=== PATIENT | female | born 1935 | race Caucasian/White ===

== ENCOUNTER 2017-05-24 16:20 | Inpatient (IN) | payer OTHER, MEDICARE ==
[2017-05-24] MEDS ORDERED: NS 1/2 1000 ML IV 1,000 ML IV ONE (17:58)
[2017-05-24] MEDS: TAMIFLU PO SCH ×2 (18:13→22:25)
[2017-05-24] MEDS: LEVAQUIN PREMIX IV 750 MG 750 MG/150 ML BAG IV SCH (18:13)
[2017-05-24] MEDS: SOLU-Medrol 40 MG VIAL IVP SCH ×2 (18:13→22:25)
[2017-05-24] MEDS: NS 1/2 1000 ML IV 1,000 ML IV SCH (18:13)
[2017-05-24] MEDS: ROBITUSSIN DM PO SCH ×2 (18:13→22:25)
[2017-05-24 18:15] LABS: BASOPHILS % (AUTO) 0.3 % (0.2-1.0); HEMATOCRIT 41.1 % (36.0-47.0); HEMOGLOBIN 14.3 g/dL (12.0-16.0); LYMPHOCYTES # (AUTO) 1.2 X10^3/uL (1.3-2.9); LYMPHOCYTES % (AUTO) 12.5 % (21.0-51.0); MEAN CORPUSCULAR HEMOGLOBIN 31.4 pg (27.0-34.0); MEAN CORPUSCULAR HGB CONC 34.9 g/dL (33.0-35.0); MEAN CORPUSCULAR VOLUME 90.1 fL (80.0-100.0); MEAN PLATELET VOLUME 7.3 fL (7.4-11.0); MONOCYTES # (AUTO) 0.7 x10^3/uL (0.3-0.8); MONOCYTES % (AUTO) 7.7 % (0.0-13.0); NEUTROPHILS # (AUTO) 7.4 x10^3/uL (2.2-4.8); NEUTROPHILS % (AUTO) 79.5 % (42.0-75.0); PLATELET COUNT 133 X10^3/uL (150.0-450.0); RED BLOOD COUNT 4.56 X10^6/uL (3.5-5.4); RED CELL DISTRIBUTION WIDTH 13.4 % (11.6-16.5); WHITE BLOOD COUNT 9.3 X10^3/uL (3.6-10.0)
--- NOTE | 2017-05-24 18:23 | RAD ---
History: Flu Study: Portable AP chest Comparison: None Findings: The heart size is normal. There are mildly increased diffuse interstitial lung markings branden t appear chronic. There is no focal lung consolidation or atelectasis and there is no effusion. Impression: No definite acute cardiopulmonary disease Reported By:
[2017-05-24 18:32] LABS: B-TYPE NATRIURETIC PEPTIDE 239 pg/mL (0-79)
[2017-05-24] MEDS: FORTAZ or TAZICEF INJ 1 GM in NS 100 ML IV + SPIKE MINIBAG* 100 ML IV SCH ×2 (19:18→22:53)
[2017-05-24 19:35] LABS: ABG BASE EXCESS 5.8 mmol/L (-2.0-2.0); ABG HCO3 29.8 mmol/L (22-26)
[2017-05-24 19:36] LABS: ABG ALLEN TEST POS
[2017-05-24 20:17] LABS: ALANINE AMINOTRANSFERASE 42 Units/L (12-78); ALBUMIN 3.8 g/dL (3.4-5.0); ALKALINE PHOSPHATASE 54 Units/L (46-116); ASPARTATE AMINO TRANSFERASE 43 Units/L (15-37); BLOOD UREA NITROGEN 11 mg/dL (7-18); CALCIUM 9.3 mg/dL (8.5-10.1); CARBON DIOXIDE 25.7 mmol/L (21-32); CHLORIDE 94 mmol/L (98-107); CREATININE 0.59 mg/dL (0.55-1.02); SODIUM 130 mmol/L (136-145); TOTAL PROTEIN 7.6 g/dL (6.4-8.2); eGFR BLACK RACES > 60 (>60); eGFR NON BLACK RACES > 60 (>60)
[2017-05-24] MEDS: MUCOMYST 20% 200 MG/ML NEB SCH (20:59)
[2017-05-24] MEDS: DUONEB 0.5 MG/3 MG NEB SCH (20:59)
[2017-05-25] MEDS: TUSSIONEX PENNKINETIC SUSP PO PRN (05:03)
[2017-05-25] MEDS: FORTAZ or TAZICEF INJ 1 GM in NS 100 ML IV + SPIKE MINIBAG* 100 ML IV SCH ×3 (05:29→21:00)
[2017-05-25] MEDS: SOLU-Medrol 40 MG VIAL IVP SCH ×3 (05:30→21:00)
[2017-05-25 05:46] LABS: BASOPHILS % (AUTO) 0.2 % (0.2-1.0); HEMATOCRIT 38.9 % (36.0-47.0); HEMOGLOBIN 13.5 g/dL (12.0-16.0); LYMPHOCYTES # (AUTO) 0.5 X10^3/uL (1.3-2.9); LYMPHOCYTES % (AUTO) 8.6 % (21.0-51.0); MEAN CORPUSCULAR HEMOGLOBIN 31.9 pg (27.0-34.0); MEAN CORPUSCULAR HGB CONC 34.8 g/dL (33.0-35.0); MEAN CORPUSCULAR VOLUME 91.4 fL (80.0-100.0); MEAN PLATELET VOLUME 7.7 fL (7.4-11.0); MONOCYTES # (AUTO) 0.2 x10^3/uL (0.3-0.8); MONOCYTES % (AUTO) 3.4 % (0.0-13.0); NEUTROPHILS # (AUTO) 5.2 x10^3/uL (2.2-4.8); NEUTROPHILS % (AUTO) 87.8 % (42.0-75.0); PLATELET COUNT 128 X10^3/uL (150.0-450.0); RED BLOOD COUNT 4.25 X10^6/uL (3.5-5.4); RED CELL DISTRIBUTION WIDTH 13.5 % (11.6-16.5); WHITE BLOOD COUNT 5.9 X10^3/uL (3.6-10.0)
[2017-05-25 06:11] LABS: ALANINE AMINOTRANSFERASE 34 Units/L (12-78); ALBUMIN 3.2 g/dL (3.4-5.0); ALKALINE PHOSPHATASE 49 Units/L (46-116); ASPARTATE AMINO TRANSFERASE 31 Units/L (15-37); BLOOD UREA NITROGEN 7 mg/dL (7-18); CALCIUM 8.4 mg/dL (8.5-10.1); CARBON DIOXIDE 26.6 mmol/L (21-32); CHLORIDE 98 mmol/L (98-107); COR NA(FOR HYPERGLY) 136 mmol/L (136-145); CREATININE 0.51 mg/dL (0.55-1.02); SODIUM 134 mmol/L (136-145); TOTAL PROTEIN 6.7 g/dL (6.4-8.2); eGFR BLACK RACES > 60 (>60); eGFR NON BLACK RACES > 60 (>60)
--- NOTE | 2017-05-25 07:36 | RAD ---
HISTORY: Pneumonia, flu Study: Chest AP portable Comparison: 05/24/2017 Findings: The heart is enlarged. No congestive heart failure is noted. The lungs are hyperinflated but free of acute alveolar infiltrates. Mild interstitial lung changes are present. No pleural effusions are iden tified. The bony thorax is unremarkable. IMPRESSION: Cardiomegaly without congestive heart failure Hyperinflation Mild interstitial lung changes Reported By:
[2017-05-25] MEDS: MUCOMYST 20% 200 MG/ML NEB SCH ×2 (08:43→20:39)
[2017-05-25] MEDS: DUONEB 0.5 MG/3 MG NEB SCH ×4 (08:43→20:39)
[2017-05-25] MEDS: TAMIFLU PO SCH ×2 (10:20→20:55)
[2017-05-25] MEDS: ROBITUSSIN DM PO SCH ×3 (10:20→20:55)
[2017-05-25] MEDS: LEVAQUIN PREMIX IV 750 MG 750 MG/150 ML BAG IV SCH (10:20)
[2017-05-25] MEDS: BUTT CREAM (COMPOUND) TOP PRN ×2 (12:00→21:55)
[2017-05-25] MEDS ORDERED: NS 1/2 1000 ML IV 1,000 ML IV ONE (21:13)
[2017-05-25] MEDS: NS 1/2 1000 ML IV 1,000 ML IV SCH (23:15)
[2017-05-26 05:37] LABS: ALANINE AMINOTRANSFERASE 31 Units/L (12-78); ALBUMIN 2.9 g/dL (3.4-5.0); ALKALINE PHOSPHATASE 45 Units/L (46-116); ASPARTATE AMINO TRANSFERASE 21 Units/L (15-37); BLOOD UREA NITROGEN 13 mg/dL (7-18); CALCIUM 8.9 mg/dL (8.5-10.1); CARBON DIOXIDE 28.3 mmol/L (21-32); CHLORIDE 99 mmol/L (98-107); COR CA(FOR HYPOALB) 9.8 mg/dL (8.5-10.1); COR NA(FOR HYPERGLY) 136 mmol/L (136-145); CREATININE 0.65 mg/dL (0.55-1.02); SODIUM 134 mmol/L (136-145); TOTAL PROTEIN 6.3 g/dL (6.4-8.2); eGFR BLACK RACES > 60 (>60); eGFR NON BLACK RACES > 60 (>60)
[2017-05-26] MEDS: SOLU-Medrol 40 MG VIAL IVP SCH ×3 (05:40→21:23)
[2017-05-26] MEDS: FORTAZ or TAZICEF INJ 1 GM in NS 100 ML IV + SPIKE MINIBAG* 100 ML IV SCH ×3 (05:40→21:24)
[2017-05-26 05:48] LABS: BASOPHILS % (AUTO) 0.1 % (0.2-1.0); HEMATOCRIT 37.7 % (36.0-47.0); LYMPHOCYTES # (AUTO) 0.8 X10^3/uL (1.3-2.9); LYMPHOCYTES % (AUTO) 8.6 % (21.0-51.0); MEAN CORPUSCULAR HEMOGLOBIN 31.6 pg (27.0-34.0); MEAN CORPUSCULAR HGB CONC 34.4 g/dL (33.0-35.0); MEAN CORPUSCULAR VOLUME 91.9 fL (80.0-100.0); MEAN PLATELET VOLUME 7.3 fL (7.4-11.0); MONOCYTES # (AUTO) 0.6 x10^3/uL (0.3-0.8); MONOCYTES % (AUTO) 6.6 % (0.0-13.0); NEUTROPHILS # (AUTO) 8.3 x10^3/uL (2.2-4.8); NEUTROPHILS % (AUTO) 84.7 % (42.0-75.0); PLATELET COUNT 160 X10^3/uL (150.0-450.0); RED CELL DISTRIBUTION WIDTH 13.3 % (11.6-16.5); WHITE BLOOD COUNT 9.8 X10^3/uL (3.6-10.0)
[2017-05-26] MEDS: DUONEB 0.5 MG/3 MG NEB SCH ×4 (08:42→21:10)
[2017-05-26] MEDS: MUCOMYST 20% 200 MG/ML NEB SCH ×2 (08:42→21:10)
[2017-05-26] MEDS: TAMIFLU PO SCH ×2 (09:34→21:19)
[2017-05-26] MEDS: LEVAQUIN PREMIX IV 750 MG 750 MG/150 ML BAG IV SCH (09:34)
[2017-05-26] MEDS: ROBITUSSIN DM PO SCH ×4 (09:35→21:19)
--- NOTE | 2017-05-26 10:35 | RAD ---
Examination: AP chest History: Pneumonia Comparison 05/25/2017 Findings: Continued normal heart size with no evidence for developing pneumonia or atelectasis. The p leural spaces are well defined. No pneumothorax is seen. Impression: No definite interval change or acute findings. Reported By:
[2017-05-26 14:05] VITALS: BMI 29.0
--- NOTE | 2017-05-26 20:45 | DR.UPDATE ---
H&P Update History and Physical Update: WAS SEEN IN THE OFFICE ON 05/24/2017. A H&P WAS COMPLETED IN THE OFFICE PRIOR TO ADMISSION. PATIENT HAS BEEN SEEN AND EXAMINED WITH NO CHANGES NOTED TO H&P. Changes noted: NO Yes with the following:
--- NOTE | 2017-05-26 21:12 | PCM.PROG ---
Progress Note - Progress Note for Day of Date: 05/25/17 - Subjective Subjective: WAS A DIRECT ADMISSION YESTERDAY FOR BRONCHOPNEUMONIA AND INFLUENZA. TODAY, SHE IS ALERT AND ORIENTED, SITTING UP IN BED ON MORNING ROUNDS. PATIENTS SON IS AT BEDSIDE. TODAY, SHE IS NOTED WITH COMPLAINTS OF COUGH, CONGESTION, SHORTNESS OF BREATH, AND WEAKNESS. ON EXAMINATION, HEART IS REGULAR IN RATE AND RHYTHM. BILATERAL LUNGS ARE NOTED WITH RHONCHI AND EXPIRATORY WHEEZES. SHE IS NOTED TO BE UTILIZING OXYGEN VIA NASAL CANNULA AT 2L/ MIN. ABDOMEN IS ROUND, SOFT, AND NON-TENDER WITH NORMAL BOWEL SOUNDS NOTED IN ALL QUADRANTS. THERE IS NORMAL RANGE OF MOTION NOTED TO ALL EXTREMITIES. HER VITALS THIS MORNING ARE 97.9-74-18-94%-144/75. LABS WERE OBTAINED. ABNORMAL LAB VALUES INCLUDE THE FOLLOWING: PLT COUNT 128, SODIUM 134, CREATININE 0.51, GLUCOSE 163, CALCIUM 8.4, ALBUMIN 3.2. BLOOD CULTURES AND SPUTUM CULTURE ARE PENDING. A CHEST XRAY WAS OBTAINED TODAY AND REPORTED CARDIOMEGALY WITHOUT CONGESTIVE HEART FAILURE, HYPERINFLATION, MILD INTERSTITAL LUNG CHANGES. SHE CONTINUES ON IV ANTIBIOTICS, TAMIFLU, AND RESPIRATORY TREATMENTS. WE WILL CONTINUE WITH CURRENT PLAN OF CARE TODAY. WE PLAN TO FOLLOW UP WITH AM LABS AND CHEST XRAY AND CONTINUE TO MONITOR PATIENT. - Past Medical Family Social History Past Med/Fam/Surg Hx: No changes since H&P Allergies: Allergies benzonatate [From Tessalon Perles] Allergy (Verified 05/24/17 16:50) meperidine [From Demerol] Allergy (Verified 05/24/17 16:50) Penicillins Allergy (Verified 05/24/17 17:37) rofecoxib [From Vioxx] Allergy (Verified 05/24/17 16:50) WATER PILLS Allergy (Uncoded 05/24/17 19:00) - Review of Systems ROS: No change since H&P - Vital Signs and I&O's Vital Signs: Temperature 97.7 F Pulse Rate [Right Brachial] 72 Pulse Rate 74 Respiratory Rate 20 Blood Pressure [Right Arm] 128/62 O2 Sat by Pulse Oximetry 93 Intake and Output: Intake & Output 05/24/17 05/25/17 05/26/17 05/27/17 11:59 11:59 11:59 11:59 Intake Total 605 2122 760 Balance 605 2121 760 - Physical Exam Oriented: Normal Eyes: Normal. negative: Blurred Vision, Diplopia, Discharge, Pain, Redness, Photophobia, Other Ear: Normal. negative: Right, Left, Swelling, Ecchymosis, Hemotypanum, Abrasion , Laceration Nose: Other (NASAL AND CHEST CONGESTION ) Throat: Normal Respiratory: Right, Left, Generalized, Wheezes, Rhonchi Cardiovascular: Normal. negative: S3, S4, Murmur : Normal. negative: Dysuria, Hematuria, Frequency, Discharge, Testicular Pain , Bleeding, , Other Auscultation: Bowel Sounds: Normal. negative: Bruit, Absent, Increased, Decreased, High Pitched, Other Palpation: Normal Tenderness: Normal. negative: Rebound, Guarding, Rigidity Skin: Normal Musculoskeletal: Normal Psychiatric: Normal Mood Description: Calm Affect: Normal Speech Pattern: Clear, Appropriate - Laboratory and Diagnostics Result Diagrams: 05/26/17 04:40 05/26/17 04:40 Labs: 05/24/17 18:00 Blood Blood Culture - Preliminary 05/24/17 17:55 Blood Blood Culture - Preliminary 05/24/17 18:23 Sputum - Expectorated Sputum Sputum Culture - Final 05/24/17 18:23 Sputum - Expectorated Sputum - Final Laboratory WBC 9.8 X10^3/uL (3.6-10.0) 05/26/17 04:40 RBC 4.10 X10^6/uL (3.5-5.4) 05/26/17 04:40 Hgb 13.0 g/dL (12.0-16.0) 05/26/17 04:40 Hct 37.7 % (36.0-47.0) 05/26/17 04:40 MCV 91.9 fL (80.0-100.0) 05/26/17 04:40 MCH 31.6 pg (27.0-34.0) 05/26/17 04:40 MCHC 34.4 g/dL (33.0-35.0) 05/26/17 04:40 RDW 13.3 % (11.6-16.5) 05/26/17 04:40 Plt Count 160 X10^3/uL (150.0-450.0) 05/26/17 04:40 MPV 7.3 fL (7.4-11.0) L 05/26/17 04:40 Neut % 84.7 % (42.0-75.0) H 05/26/17 04:40 Lymph % 8.6 % (21.0-51.0) L 05/26/17 04:40 [place] % 6.6 % (0.0-13.0) 05/26/17 04:40 Eos % 0.0 % (0.9-2.9) L 05/26/17 04:40 Baso % 0.1 % (0.2-1.0) L 05/26/17 04:40 Neut # 8.3 x10^3/uL (2.2-4.8) H 05/26/17 04:40 Lymph # 0.8 X10^3/uL (1.3-2.9) L 05/26/17 04:40 [place] # 0.6 x10^3/uL (0.3-0.8) 05/26/17 04:40 Eos # 0.0 x10^3/uL (0.0-0.2) 05/26/17 04:40 Baso # 0.0 X10^3/uL (0.0-0.1) 05/26/17 04:40 Absolute Nucleated RBC 0.0 /100WBC 05/26/17 04:40 Sample Site Lra 05/24/17 19:15 ABG pH 7.480 (7.35-7.45) H 05/24/17 19:15 ABG pCO2 40.0 mmHg (35.0-45.0) 05/24/17 19:15 ABG pO2 64.0 mmHg (80.0-100.0) L 05/24/17 19:15 ABG HCO3 29.8 mmol/L (22-26) H 05/24/17 19:15 ABG O2 Saturation 94.0 % (90-100) 05/24/17 19:15 ABG Base Excess 5.8 mmol/L (-2.0-2.0) H 05/24/17 19:15 Jake Test Pos 05/24/17 19:15 A-a Gradient 86.0 mmHg 05/24/17 19:15 FiO2 28.000 05/24/17 19:15 Blood Gas Comments Belkys well mm 05/24/17 19:15 Sodium 134 mmol/L (136-145) L 05/26/17 04:40 Corrected Sodium 136 mmol/L (136-145) 05/26/17 04:40 Potassium 4.1 mmol/L (3.5-5.1) 05/26/17 04:40 Chloride 99 mmol/L (98-107) 05/26/17 04:40 Carbon Dioxide 28.3 mmol/L (21-32) 05/26/17 04:40 BUN 13 mg/dL (7-18) 05/26/17 04:40 Creatinine 0.65 mg/dL (0.55-1.02) 05/26/17 04:40 Est GFR (MDRD) Af Amer > 60 (>60) 05/26/17 04:40 Est GFR (MDRD) Non-Af > 60 (>60) 05/26/17 04:40 Glucose 192 mg/dL (65-99) H 05/26/17 04:40 Calcium 8.9 mg/dL (8.5-10.1) 05/26/17 04:40 Corrected Calcium 9.8 mg/dL (8.5-10.1) 05/26/17 04:40 Total Bilirubin 0.40 mg/dL (0.2-1.0) 05/26/17 04:40 AST 21 Units/L (15-37) 05/26/17 04:40 ALT 31 Units/L (12-78) 05/26/17 04:40 Alkaline Phosphatase 45 Units/L (46-116) L 05/26/17 04:40 B-Natriuretic Peptide 239 pg/mL (0-79) H 05/24/17 18:00 Total Protein 6.3 g/dL (6.4-8.2) L 05/26/17 04:40 Albumin 2.9 g/dL (3.4-5.0) L 05/26/17 04:40 Globulin 3.4 g/dL (2.5-4.5) 05/26/17 04:40 Albumin/Globulin Ratio 0.9 Ratio (1.1-2.1) L 05/26/17 04:40 Influenza Type A (PCR) Positive (NEGATIVE) A 05/24/17 18:56 Influenza Type B (PCR) Negative (NEGATIVE) 05/24/17 18:56 - Plan (1) Bronchopneumonia Status: Acute Plan: CONTINUE LEVAQUIN, CONTINUE FORTAZ, CONTINUE RESPIRATORY TX AND SUPPLEMENTAL OXYGEN, CONTINUE TO MONITOR (2) Influenza Status: Acute Plan: CONTINUE TAMIFLU, CONTINUE TO MONITOR
[2017-05-26] MEDS: TUSSIONEX PENNKINETIC SUSP PO PRN (21:24)
--- NOTE | 2017-05-26 23:32 | PCM.PROG ---
Progress Note - Progress Note for Day of Date: 05/26/17 - Subjective Subjective: WAS A DIRECT ADMISSION YESTERDAY FOR BRONCHOPNEUMONIA AND INFLUENZA. TODAY, SHE IS ALERT AND ORIENTED, SITTING UP IN BED ON MORNING ROUNDS. TODAY, SHE CONTINUES WITH COMPLAINTS OF COUGH, CONGESTION, SHORTNESS OF BREATH, GENERALIZED BODY ACHES, AND WEAKNESS, BUT REPORTS THAT ALL SYMPTOMS HAVE SLIGHTLY IMPROVED SINCE YESTERDAY. ON EXAMINATION, HEART IS REGULAR IN RATE AND RHYTHM. BILATERAL LUNGS ARE NOTED WITH RHONCHI AND EXPIRATORY WHEEZES. SHE IS NOTED TO BE UTILIZING OXYGEN VIA NASAL CANNULA AT 2L/MIN. ABDOMEN IS ROUND, SOFT, AND NON-TENDER WITH NORMAL BOWEL SOUNDS NOTED IN ALL QUADRANTS. THERE IS NORMAL RANGE OF MOTION NOTED TO ALL EXTREMITIES. HER VITALS THIS MORNING ARE 97.5-76-20-95%-176/72. LABS WERE OBTAINED. ABNORMAL LAB VALUES INCLUDE THE FOLLOWING: SODIUM 134, GLUCOSE 192, ALK PHOS 45, TOTAL PROTEIN 6.3, ALBUMIN 2.9. BLOOD CULTURES AND SPUTUM CULTURE ARE PENDING. A CHEST XRAY WAS OBTAINED TODAY AND REPORTED NO DEFINITE INTERVAL CHANGES OR ACUTE FINDINGS. SHE CONTINUES ON IV ANTIBIOTICS, TAMIFLU, AND RESPIRATORY TREATMENTS. WE WILL CONTINUE WITH CURRENT PLAN OF CARE TODAY. WE PLAN TO FOLLOW UP WITH AM LABS AND CHEST XRAY AND CONTINUE TO MONITOR PATIENT. WE WILL PLAN FOR DISCHARGE TOMORROW IF PATIENT REMAINS STABLE. - Past Medical Family Social History Past Med/Fam/Surg Hx: No changes since H&P Allergies: Allergies benzonatate [From Tessalon Perles] Allergy (Verified 05/24/17 16:50) meperidine [From Demerol] Allergy (Verified 05/24/17 16:50) Penicillins Allergy (Verified 05/24/17 17:37) rofecoxib [From Vioxx] Allergy (Verified 05/24/17 16:50) WATER PILLS Allergy (Uncoded 05/24/17 19:00) - Review of Systems ROS: No change since H&P - Vital Signs and I&O's Vital Signs: Temperature 97.9 F Pulse Rate [Right Brachial] 93 Pulse Rate 95 Respiratory Rate 20 Blood Pressure [Right Arm] 132/76 O2 Sat by Pulse Oximetry 93 Intake and Output: Intake & Output 05/24/17 05/25/17 05/26/17 05/27/17 11:59 11:59 11:59 11:59 Intake Total 605 2122 760 Balance 605 2122 760 - Physical Exam Oriented: Normal Eyes: Normal. negative: Blurred Vision, Diplopia, Discharge, Pain, Redness, Photophobia, Other Ear: Normal. negative: Right, Left, Swelling, Ecchymosis, Hemotypanum, Abrasion , Laceration Nose: Other (NASAL AND CHEST CONGESTION ) Throat: Normal Respiratory: Right, Left, Generalized, Wheezes, Rhonchi Cardiovascular: Normal. negative: S3, S4, Murmur : Normal. negative: Dysuria, Hematuria, Frequency, Discharge, Testicular Pain , Bleeding, , Other Auscultation: Bowel Sounds: Normal. negative: Bruit, Absent, Increased, Decreased, High Pitched, Other Palpation: Normal Tenderness: Normal. negative: Rebound, Guarding, Rigidity Skin: Normal Musculoskeletal: Normal Psychiatric: Normal Mood Description: Calm Affect: Normal Speech Pattern: Clear, Appropriate - Laboratory and Diagnostics Result Diagrams: 05/26/17 04:40 05/26/17 04:40 Labs: 05/24/17 18:00 Blood Blood Culture - Preliminary 05/24/17 17:55 Blood Blood Culture - Preliminary 05/24/17 18:23 Sputum - Expectorated Sputum Sputum Culture - Final 05/24/17 18:23 Sputum - Expectorated Sputum - Final Laboratory WBC 9.8 X10^3/uL (3.6-10.0) 05/26/17 04:40 RBC 4.10 X10^6/uL (3.5-5.4) 05/26/17 04:40 Hgb 13.0 g/dL (12.0-16.0) 05/26/17 04:40 Hct 37.7 % (36.0-47.0) 05/26/17 04:40 MCV 91.9 fL (80.0-100.0) 05/26/17 04:40 MCH 31.6 pg (27.0-34.0) 05/26/17 04:40 MCHC 34.4 g/dL (33.0-35.0) 05/26/17 04:40 RDW 13.3 % (11.6-16.5) 05/26/17 04:40 Plt Count 160 X10^3/uL (150.0-450.0) 05/26/17 04:40 MPV 7.3 fL (7.4-11.0) L 05/26/17 04:40 Neut % 84.7 % (42.0-75.0) H 05/26/17 04:40 Lymph % 8.6 % (21.0-51.0) L 05/26/17 04:40 [place] % 6.6 % (0.0-13.0) 05/26/17 04:40 Eos % 0.0 % (0.9-2.9) L 05/26/17 04:40 Baso % 0.1 % (0.2-1.0) L 05/26/17 04:40 Neut # 8.3 x10^3/uL (2.2-4.8) H 05/26/17 04:40 Lymph # 0.8 X10^3/uL (1.3-2.9) L 05/26/17 04:40 [place] # 0.6 x10^3/uL (0.3-0.8) 05/26/17 04:40 Eos # 0.0 x10^3/uL (0.0-0.2) 05/26/17 04:40 Baso # 0.0 X10^3/uL (0.0-0.1) 05/26/17 04:40 Absolute Nucleated RBC 0.0 /100WBC 05/26/17 04:40 Sample Site Lra 05/24/17 19:15 ABG pH 7.480 (7.35-7.45) H 05/24/17 19:15 ABG pCO2 40.0 mmHg (35.0-45.0) 05/24/17 19:15 ABG pO2 64.0 mmHg (80.0-100.0) L 05/24/17 19:15 ABG HCO3 29.8 mmol/L (22-26) H 05/24/17 19:15 ABG O2 Saturation 94.0 % (90-100) 05/24/17 19:15 ABG Base Excess 5.8 mmol/L (-2.0-2.0) H 05/24/17 19:15 Jake Test Pos 05/24/17 19:15 A-a Gradient 86.0 mmHg 05/24/17 19:15 FiO2 28.000 05/24/17 19:15 Blood Gas Comments Belkys well mm 05/24/17 19:15 Sodium 134 mmol/L (136-145) L 05/26/17 04:40 Corrected Sodium 136 mmol/L (136-145) 05/26/17 04:40 Potassium 4.1 mmol/L (3.5-5.1) 05/26/17 04:40 Chloride 99 mmol/L (98-107) 05/26/17 04:40 Carbon Dioxide 28.3 mmol/L (21-32) 05/26/17 04:40 BUN 13 mg/dL (7-18) 05/26/17 04:40 Creatinine 0.65 mg/dL (0.55-1.02) 05/26/17 04:40 Est GFR (MDRD) Af Amer > 60 (>60) 05/26/17 04:40 Est GFR (MDRD) Non-Af > 60 (>60) 05/26/17 04:40 Glucose 192 mg/dL (65-99) H 05/26/17 04:40 Calcium 8.9 mg/dL (8.5-10.1) 05/26/17 04:40 Corrected Calcium 9.8 mg/dL (8.5-10.1) 05/26/17 04:40 Total Bilirubin 0.40 mg/dL (0.2-1.0) 05/26/17 04:40 AST 21 Units/L (15-37) 05/26/17 04:40 ALT 31 Units/L (12-78) 05/26/17 04:40 Alkaline Phosphatase 45 Units/L (46-116) L 05/26/17 04:40 B-Natriuretic Peptide 239 pg/mL (0-79) H 05/24/17 18:00 Total Protein 6.3 g/dL (6.4-8.2) L 05/26/17 04:40 Albumin 2.9 g/dL (3.4-5.0) L 05/26/17 04:40 Globulin 3.4 g/dL (2.5-4.5) 05/26/17 04:40 Albumin/Globulin Ratio 0.9 Ratio (1.1-2.1) L 05/26/17 04:40 Influenza Type A (PCR) Positive (NEGATIVE) A 05/24/17 18:56 Influenza Type B (PCR) Negative (NEGATIVE) 05/24/17 18:56 - Plan (1) Bronchopneumonia Status: Acute Plan: CONTINUE LEVAQUIN, CONTINUE FORTAZ, CONTINUE RESPIRATORY TX AND SUPPLEMENTAL OXYGEN, SOLU-MEDROL 40MG IV Q8H, CONTINUE TO MONITOR (2) Influenza Status: Acute Plan: CONTINUE TAMIFLU, CONTINUE TO MONITOR
[2017-05-26] MEDS ORDERED: NS 1/2 1000 ML IV 1,000 ML IV ONE (23:55)
[2017-05-27] MEDS: FORTAZ or TAZICEF INJ 1 GM in NS 100 ML IV + SPIKE MINIBAG* 100 ML IV SCH ×3 (05:41→21:18)
[2017-05-27] MEDS: SOLU-Medrol 40 MG VIAL IVP SCH ×2 (05:41→13:58)
[2017-05-27 06:36] LABS: BASOPHILS % (AUTO) 0.2 % (0.2-1.0); HEMATOCRIT 39.7 % (36.0-47.0); HEMOGLOBIN 13.9 g/dL (12.0-16.0); LYMPHOCYTES # (AUTO) 0.8 X10^3/uL (1.3-2.9); LYMPHOCYTES % (AUTO) 7.5 % (21.0-51.0); MEAN CORPUSCULAR HEMOGLOBIN 31.5 pg (27.0-34.0); MEAN CORPUSCULAR HGB CONC 35.1 g/dL (33.0-35.0); MEAN CORPUSCULAR VOLUME 89.8 fL (80.0-100.0); MEAN PLATELET VOLUME 7.5 fL (7.4-11.0); MONOCYTES # (AUTO) 0.9 x10^3/uL (0.3-0.8); MONOCYTES % (AUTO) 7.8 % (0.0-13.0); NEUTROPHILS # (AUTO) 9.4 x10^3/uL (2.2-4.8); NEUTROPHILS % (AUTO) 84.5 % (42.0-75.0); PLATELET COUNT 216 X10^3/uL (150.0-450.0); RED BLOOD COUNT 4.43 X10^6/uL (3.5-5.4); RED CELL DISTRIBUTION WIDTH 13.3 % (11.6-16.5); WHITE BLOOD COUNT 11.2 X10^3/uL (3.6-10.0)
[2017-05-27 06:45] LABS: ALANINE AMINOTRANSFERASE 33 Units/L (12-78); ALBUMIN 3.1 g/dL (3.4-5.0); ALKALINE PHOSPHATASE 48 Units/L (46-116); ASPARTATE AMINO TRANSFERASE 23 Units/L (15-37); BLOOD UREA NITROGEN 13 mg/dL (7-18); CARBON DIOXIDE 27.3 mmol/L (21-32); CHLORIDE 96 mmol/L (98-107); COR CA(FOR HYPOALB) 9.7 mg/dL (8.5-10.1); COR NA(FOR HYPERGLY) 132 mmol/L (136-145); CREATININE 0.67 mg/dL (0.55-1.02); SODIUM 131 mmol/L (136-145); TOTAL PROTEIN 6.6 g/dL (6.4-8.2); eGFR BLACK RACES > 60 (>60); eGFR NON BLACK RACES > 60 (>60)
[2017-05-27 06:58] LABS: PLATELET MORPHOLOGY COMMENT NORMAL (NORMAL)
--- NOTE | 2017-05-27 07:24 | RAD ---
Examination: Portable AP chest History: SOB Comparison 05/26/2017 Findings:Continued normal heart size with lungs and pleural space is free of active process. No pneum othorax or pleural fluid or focal pneumonia. Impression: No change; no acute findings. Reported By:
[2017-05-27] MEDS: DUONEB 0.5 MG/3 MG NEB SCH ×4 (08:46→20:36)
[2017-05-27] MEDS: ROBITUSSIN DM PO SCH ×4 (09:18→21:18)
[2017-05-27] MEDS: MILK OF MAGNESIA PO SCH ×4 (09:18→21:19)
[2017-05-27] MEDS: COLACE CAP 100 MG PO SCH ×2 (09:18→21:18)
[2017-05-27] MEDS: LEVAQUIN PREMIX IV 750 MG 750 MG/150 ML BAG IV SCH (09:19)
[2017-05-27] MEDS: MIRALAX POWDER (1 DOSE 17GM) PO SCH (09:19)
[2017-05-27] MEDS: TAMIFLU PO SCH (09:19)
--- NOTE | 2017-05-27 09:32 | PCM.PROG ---
Progress Note - Progress Note for Day of Date: 05/27/17 - Subjective Subjective: WAS A DIRECT ADMISSION YESTERDAY FOR BRONCHOPNEUMONIA AND INFLUENZA. TODAY, SHE IS ALERT AND ORIENTED, SITTING UP IN BED ON MORNING ROUNDS. TODAY, SHE CONTINUES WITH COMPLAINTS OF SHORTNESS OF BREATH, GENERALIZED WEAKNESS, COUGH, AND FATIGUE. PATIENT REPORTS THAT SHE DID NOT SLEEP WELL LAST NIGHT. SHE ALSO REPORTS NOT HAVING A BOWEL MOVMENT SINCE MONDAY. ON EXAMINATION, HEART IS REGULAR IN RATE AND RHYTHM. BILATERAL LUNGS CONTINUE WITH EXPIRATORY WHEEZES. SHE IS NOTED TO BE UTILIZING OXYGEN VIA NASAL CANNULA AT 2L/MIN. ABDOMEN IS ROUND, SOFT, AND NON-TENDER WITH HYPOACTIVE BOWEL SOUNDS NOTED IN ALL QUADRANTS. THERE IS NORMAL RANGE OF MOTION NOTED TO ALL EXTREMITIES. HER VITALS THIS MORNING ARE 98.1-84-20-95%-136/69. LABS WERE OBTAINED. ABNORMAL LAB VALUES INCLUDE THE FOLLOWING: WBC 11.2, SODIUM 131, CHLORIDE 96, GLUCOSE 156, ALBUMIN 3.1. BLOOD CULTURES AND SPUTUM CULTURE ARE PENDING. A CHEST XRAY WAS OBTAINED TODAY AND REPORTED NO ACUTE FINDINGS. SHE CONTINUES ON IV ANTIBIOTICS, TAMIFLU, AND RESPIRATORY TREATMENTS. TODAY, WE WILL ORDER A BOWEL REGIMEN AND DECREASE THE SOLU-MEDROL TO TWICE A DAY AT 0600 AND 1400. OTHERWISE, WE WILL CONTINUE WITH CURRENT PLAN OF CARE. WE PLAN TO FOLLOW UP WITH AM LABS AND CHEST XRAY AND CONTINUE TO MONITOR PATIENT. - Past Medical Family Social History Past Med/Fam/Surg Hx: No changes since H&P Allergies: Allergies benzonatate [From Tessalon Perles] Allergy (Verified 05/24/17 16:50) meperidine [From Demerol] Allergy (Verified 05/24/17 16:50) Penicillins Allergy (Verified 05/24/17 17:37) rofecoxib [From Vioxx] Allergy (Verified 05/24/17 16:50) WATER PILLS Allergy (Uncoded 05/24/17 19:00) - Review of Systems ROS: No change since H&P - Vital Signs and I&O's Vital Signs: Temperature 98.1 F Pulse Rate [Right Brachial] 84 Pulse Rate 84 Respiratory Rate 20 Blood Pressure [Right Arm] 136/69 O2 Sat by Pulse Oximetry 95 Intake and Output: Intake & Output 05/24/17 05/25/17 05/26/17 05/27/17 11:59 11:59 11:59 11:59 Intake Total 605 2122 1780 Balance 605 2122 1780 - Physical Exam Oriented: Normal Eyes: Normal. negative: Blurred Vision, Diplopia, Discharge, Pain, Redness, Photophobia, Other Ear: Normal. negative: Right, Left, Swelling, Ecchymosis, Hemotypanum, Abrasion , Laceration Nose: Other (NASAL AND CHEST CONGESTION ) Throat: Normal Respiratory: Right, Left, Generalized, Wheezes, Rhonchi Cardiovascular: Normal. negative: S3, S4, Murmur : Normal. negative: Dysuria, Hematuria, Frequency, Discharge, Testicular Pain , Bleeding, , Other Auscultation: Bowel Sounds: Normal. negative: Bruit, Absent, Increased, Decreased, High Pitched, Other Palpation: Normal Tenderness: Normal. negative: Rebound, Guarding, Rigidity Skin: Normal Musculoskeletal: Normal Psychiatric: Normal Mood Description: Calm Affect: Normal Speech Pattern: Clear, Appropriate - Laboratory and Diagnostics Result Diagrams: 05/27/17 05:30 05/27/17 05:30 Labs: 05/24/17 18:00 Blood Blood Culture - Preliminary 05/24/17 17:55 Blood Blood Culture - Preliminary 05/24/17 18:23 Sputum - Expectorated Sputum Sputum Culture - Final 05/24/17 18:23 Sputum - Expectorated Sputum - Final Laboratory WBC 11.2 X10^3/uL (3.6-10.0) H 05/27/17 05:30 RBC 4.43 X10^6/uL (3.5-5.4) 05/27/17 05:30 Hgb 13.9 g/dL (12.0-16.0) 05/27/17 05:30 Hct 39.7 % (36.0-47.0) 05/27/17 05:30 MCV 89.8 fL (80.0-100.0) 05/27/17 05:30 MCH 31.5 pg (27.0-34.0) 05/27/17 05:30 MCHC 35.1 g/dL (33.0-35.0) H 05/27/17 05:30 RDW 13.3 % (11.6-16.5) 05/27/17 05:30 Plt Count 216 X10^3/uL (150.0-450.0) 05/27/17 05:30 Plt Count Comment Adequate (ADEQUATE) 05/27/17 05:30 MPV 7.5 fL (7.4-11.0) 05/27/17 05:30 Neut % 84.5 % (42.0-75.0) H 05/27/17 05:30 Lymph % 7.5 % (21.0-51.0) L 05/27/17 05:30 [place] % 7.8 % (0.0-13.0) 05/27/17 05:30 Eos % 0.0 % (0.9-2.9) L 05/27/17 05:30 Baso % 0.2 % (0.2-1.0) 05/27/17 05:30 Neut # 9.4 x10^3/uL (2.2-4.8) H 05/27/17 05:30 Lymph # 0.8 X10^3/uL (1.3-2.9) L 05/27/17 05:30 [place] # 0.9 x10^3/uL (0.3-0.8) H 05/27/17 05:30 Eos # 0.0 x10^3/uL (0.0-0.2) 05/27/17 05:30 Baso # 0.0 X10^3/uL (0.0-0.1) 05/27/17 05:30 Absolute Nucleated RBC 0.0 /100WBC 05/27/17 05:30 Total Counted 100 05/27/17 05:30 Neutrophils % (Manual) 93 % (39-76) H 05/27/17 05:30 Lymphocytes % (Manual) 6 % (13-43) L 05/27/17 05:30 Monocytes % (Manual) 1 % (4-9) L 05/27/17 05:30 Plt Morphology Comment Normal (NORMAL) 05/27/17 05:30 RBC Morphology Normal (NORMAL) 05/27/17 05:30 Sample Site Lra 05/24/17 19:15 ABG pH 7.480 (7.35-7.45) H 05/24/17 19:15 ABG pCO2 40.0 mmHg (35.0-45.0) 05/24/17 19:15 ABG pO2 64.0 mmHg (80.0-100.0) L 05/24/17 19:15 ABG HCO3 29.8 mmol/L (22-26) H 05/24/17 19:15 ABG O2 Saturation 94.0 % (90-100) 05/24/17 19:15 ABG Base Excess 5.8 mmol/L (-2.0-2.0) H 05/24/17 19:15 Jake Test Pos 05/24/17 19:15 A-a Gradient 86.0 mmHg 05/24/17 19:15 FiO2 28.000 05/24/17 19:15 Blood Gas Comments Belkys well mm 05/24/17 19:15 Sodium 131 mmol/L (136-145) L 05/27/17 05:30 Corrected Sodium 132 mmol/L (136-145) L 05/27/17 05:30 Potassium 4.3 mmol/L (3.5-5.1) 05/27/17 05:30 Chloride 96 mmol/L (98-107) L 05/27/17 05:30 Carbon Dioxide 27.3 mmol/L (21-32) 05/27/17 05:30 BUN 13 mg/dL (7-18) 05/27/17 05:30 Creatinine 0.67 mg/dL (0.55-1.02) 05/27/17 05:30 Est GFR (MDRD) Af Amer > 60 (>60) 05/27/17 05:30 Est GFR (MDRD) Non-Af > 60 (>60) 05/27/17 05:30 Glucose 156 mg/dL (65-99) H 05/27/17 05:30 Calcium 9.0 mg/dL (8.5-10.1) 05/27/17 05:30 Corrected Calcium 9.7 mg/dL (8.5-10.1) 05/27/17 05:30 Total Bilirubin 0.50 mg/dL (0.2-1.0) 05/27/17 05:30 AST 23 Units/L (15-37) 05/27/17 05:30 ALT 33 Units/L (12-78) 05/27/17 05:30 Alkaline Phosphatase 48 Units/L (46-116) 05/27/17 05:30 B-Natriuretic Peptide 239 pg/mL (0-79) H 05/24/17 18:00 Total Protein 6.6 g/dL (6.4-8.2) 05/27/17 05:30 Albumin 3.1 g/dL (3.4-5.0) L 05/27/17 05:30 Globulin 3.5 g/dL (2.5-4.5) 05/27/17 05:30 Albumin/Globulin Ratio 0.9 Ratio (1.1-2.1) L 05/27/17 05:30 Influenza Type A (PCR) Positive (NEGATIVE) A 05/24/17 18:56 Influenza Type B (PCR) Negative (NEGATIVE) 05/24/17 18:56 - Plan (1) Bronchopneumonia Status: Acute Plan: CONTINUE LEVAQUIN, CONTINUE FORTAZ, CONTINUE RESPIRATORY TX AND SUPPLEMENTAL OXYGEN, SOLU-MEDROL 40MG AT 0600 & 1400, CONTINUE TO MONITOR (2) Influenza Status: Acute Plan: CONTINUE TAMIFLU, CONTINUE TO MONITOR (3) Constipation Status: Acute Qualifiers: Constipation type: slow transit constipation Qualified Code(s): K59.01 - Slow transit constipation Plan: COLACE 100MG BID, MILK OF MAGNESIA 15ML QID, MIRALAX DAILY, CONTINUE TO MONITOR
[2017-05-28] MEDS ORDERED: NS 1/2 1000 ML IV 1,000 ML IV ONE ×2 (03:23→20:53)
[2017-05-28] MEDS: NS 1/2 1000 ML IV 1,000 ML IV SCH ×2 (04:31→20:57)
[2017-05-28] MEDS: SOLU-Medrol 40 MG VIAL IVP SCH ×2 (06:03→14:15)
[2017-05-28] MEDS: FORTAZ or TAZICEF INJ 1 GM in NS 100 ML IV + SPIKE MINIBAG* 100 ML IV SCH ×2 (06:03→14:15)
--- NOTE | 2017-05-28 06:22 | RAD ---
Examination: AP chest History: Pneumonia, SOB Comparison 05/27/2017 Findings: Continued upper normal heart size with tortuous aorta, clear lungs and pleural spaces. Impression: No acute chest findings. Reported By:
[2017-05-28 06:35] LABS: BASOPHILS % (AUTO) 0.1 % (0.2-1.0); HEMOGLOBIN 14.4 g/dL (12.0-16.0); LYMPHOCYTES # (AUTO) 1.4 X10^3/uL (1.3-2.9); LYMPHOCYTES % (AUTO) 13.4 % (21.0-51.0); MEAN CORPUSCULAR HEMOGLOBIN 31.6 pg (27.0-34.0); MEAN CORPUSCULAR HGB CONC 35.2 g/dL (33.0-35.0); MEAN CORPUSCULAR VOLUME 89.9 fL (80.0-100.0); MEAN PLATELET VOLUME 7.1 fL (7.4-11.0); MONOCYTES % (AUTO) 10.1 % (0.0-13.0); NEUTROPHILS # (AUTO) 7.8 x10^3/uL (2.2-4.8); NEUTROPHILS % (AUTO) 76.4 % (42.0-75.0); PLATELET COUNT 228 X10^3/uL (150.0-450.0); RED BLOOD COUNT 4.56 X10^6/uL (3.5-5.4); RED CELL DISTRIBUTION WIDTH 13.2 % (11.6-16.5); WHITE BLOOD COUNT 10.2 X10^3/uL (3.6-10.0)
[2017-05-28 07:11] LABS: ALANINE AMINOTRANSFERASE 32 Units/L (12-78); ALKALINE PHOSPHATASE 46 Units/L (46-116); ASPARTATE AMINO TRANSFERASE 22 Units/L (15-37); BAND NEUTROPHILS % 1 % (0-10); BLOOD UREA NITROGEN 17 mg/dL (7-18); CALCIUM 8.9 mg/dL (8.5-10.1); CARBON DIOXIDE 25.5 mmol/L (21-32); CHLORIDE 93 mmol/L (98-107); COR CA(FOR HYPOALB) 9.7 mg/dL (8.5-10.1); COR NA(FOR HYPERGLY) 125 mmol/L (136-145); CREATININE 0.55 mg/dL (0.55-1.02); PLATELET MORPHOLOGY COMMENT NORMAL (NORMAL); TOTAL PROTEIN 6.3 g/dL (6.4-8.2); eGFR BLACK RACES > 60 (>60); eGFR NON BLACK RACES > 60 (>60)
[2017-05-28 07:18] LABS: SODIUM 125 mmol/L (136-145)
[2017-05-28] MEDS: DUONEB 0.5 MG/3 MG NEB SCH ×4 (09:01→21:53)
[2017-05-28] MEDS: MILK OF MAGNESIA PO SCH ×4 (09:31→20:56)
[2017-05-28] MEDS: ROBITUSSIN DM PO SCH ×4 (09:31→20:56)
[2017-05-28] MEDS: COLACE CAP 100 MG PO SCH ×2 (09:31→20:56)
[2017-05-28] MEDS: MIRALAX POWDER (1 DOSE 17GM) PO SCH (09:31)
[2017-05-28] MEDS: LEVAQUIN PREMIX IV 750 MG 750 MG/150 ML BAG IV SCH (09:32)
[2017-05-28] MEDS ORDERED: DULCOLAX SUPPOSITORY 10 MG RECTAL PRN (21:00)
[2017-05-29] MEDS: FORTAZ or TAZICEF INJ 1 GM in NS 100 ML IV + SPIKE MINIBAG* 100 ML IV SCH ×2 (00:58→05:33)
[2017-05-29] MEDS: SOLU-Medrol 40 MG VIAL IVP SCH (05:34)
[2017-05-29 06:36] LABS: BASOPHILS % (AUTO) 0.1 % (0.2-1.0); EOSINOPHILS % (AUTO) 0.1 % (0.9-2.9); HEMATOCRIT 41.6 % (36.0-47.0); HEMOGLOBIN 14.8 g/dL (12.0-16.0); LYMPHOCYTES # (AUTO) 1.6 X10^3/uL (1.3-2.9); MEAN CORPUSCULAR HEMOGLOBIN 31.8 pg (27.0-34.0); MEAN CORPUSCULAR HGB CONC 35.6 g/dL (33.0-35.0); MEAN CORPUSCULAR VOLUME 89.4 fL (80.0-100.0); MEAN PLATELET VOLUME 6.7 fL (7.4-11.0); MONOCYTES % (AUTO) 10.3 % (0.0-13.0); NEUTROPHILS # (AUTO) 7.2 x10^3/uL (2.2-4.8); NEUTROPHILS % (AUTO) 73.5 % (42.0-75.0); PLATELET COUNT 245 X10^3/uL (150.0-450.0); RED BLOOD COUNT 4.65 X10^6/uL (3.5-5.4); RED CELL DISTRIBUTION WIDTH 13.3 % (11.6-16.5); WHITE BLOOD COUNT 9.8 X10^3/uL (3.6-10.0)
[2017-05-29 06:55] LABS: ALANINE AMINOTRANSFERASE 29 Units/L (12-78); ALBUMIN 2.9 g/dL (3.4-5.0); ALKALINE PHOSPHATASE 39 Units/L (46-116); ASPARTATE AMINO TRANSFERASE 26 Units/L (15-37); BLOOD UREA NITROGEN 16 mg/dL (7-18); CALCIUM 8.3 mg/dL (8.5-10.1); CARBON DIOXIDE 27.4 mmol/L (21-32); CHLORIDE 91 mmol/L (98-107); COR CA(FOR HYPOALB) 9.2 mg/dL (8.5-10.1); CREATININE 0.61 mg/dL (0.55-1.02); TOTAL PROTEIN 5.9 g/dL (6.4-8.2); eGFR BLACK RACES > 60 (>60); eGFR NON BLACK RACES > 60 (>60)
[2017-05-29 07:05] LABS: SODIUM 124 mmol/L (136-145)
[2017-05-29 07:20] LABS: BAND NEUTROPHILS % 4 % (0-10); PLATELET MORPHOLOGY COMMENT NORMAL (NORMAL)
[2017-05-29] MEDS: ROBITUSSIN DM PO SCH (08:23)
[2017-05-29] MEDS: LEVAQUIN PREMIX IV 750 MG 750 MG/150 ML BAG IV SCH (08:23)
[2017-05-29] MEDS: COLACE CAP 100 MG PO SCH ×2 (08:23→20:37)
[2017-05-29] MEDS: MIRALAX POWDER (1 DOSE 17GM) PO SCH (08:30)
[2017-05-29] MEDS: MILK OF MAGNESIA PO SCH ×4 (08:30→20:37)
[2017-05-29] MEDS: DUONEB 0.5 MG/3 MG NEB SCH (09:02)
[2017-05-29] MEDS: NS 1/2 1000 ML IV 1,000 ML IV SCH ×2 (10:50→15:08)
[2017-05-29] MEDS: MAALOX or MYLANTA PO PRN ×2 (10:53→19:08)
[2017-05-29] MEDS ORDERED: NS 1/2 1000 ML IV 1,000 ML IV ONE (13:07)
--- NOTE | 2017-05-29 20:36 | PCM.PROG ---
Progress Note - Progress Note for Day of Date: 05/28/17 - Subjective Subjective: WAS A DIRECT ADMISSION YESTERDAY FOR BRONCHOPNEUMONIA AND INFLUENZA. TODAY, SHE IS ALERT AND ORIENTED, SITTING UP IN BED ON MORNING ROUNDS. SHE CONTINUES WITH COMPLAINTS OF GENERALIZED WEAKNESS. SHE REPORTS THAT RESPIRATORY SYMPTOMS HAVE IMPROVED. PATIENT REPORTS THAT SHE SLEPT BETTER LAST NIGHT. ON EXAMINATION, HEART IS REGULAR IN RATE AND RHYTHM. BILATERAL LUNGS NOTED WITH DIMINISHED LUNG SOUNDS THROUGHOUT. SHE IS NOTED TO BE UTILIZING OXYGEN VIA NASAL CANNULA AT 2L/MIN. ABDOMEN IS ROUND, SOFT, AND NON-TENDER WITH HYPOACTIVE BOWEL SOUNDS NOTED IN ALL QUADRANTS. THERE IS NORMAL RANGE OF MOTION NOTED TO ALL EXTREMITIES. HER VITALS THIS MORNING ARE 98.0-72-18-96%-160/74. LABS WERE OBTAINED. ABNORMAL LAB VALUES INCLUDE THE FOLLOWING: WBC 10.2, SODIUM 125, CHLORIDE 93, GLUCOSE 117, TOTAL PROTEIN 6.3, ALBUMIN 3.0. BLOOD CULTURES AND SPUTUM CULTURES REPORT NO GROWTH. A CHEST XRAY WAS OBTAINED TODAY AND REPORTED NO ACUTE FINDINGS. STAFF REPORTS THAT PATIENT AMBULATES OUT OF BED WITH ASSISTANCE, BUT IS UNSTEADY ON HER FEET. PATIENT REQUEST THAT AFTER SHE IS READY FOR DISCHARGE, THAT SHE BE DISCHARGED TO A REHAB FACILITY FOR PHYSICAL THERAPY. WE WILL DISCUSS THIS WITH CASE MANAGEMENT. SHE CONTINUES ON IV ANTIBIOTICS, TAMIFLU, AND RESPIRATORY TREATMENTS. WE WILL CONTINUE WITH CURRENT PLAN OF CARE TODAY. WE PLAN TO FOLLOW UP WITH AM LABS AND CHEST XRAY AND CONTINUE TO MONITOR PATIENT. - Past Medical Family Social History Past Med/Fam/Surg Hx: No changes since H&P Allergies: Allergies benzonatate [From Tessalon Perles] Allergy (Verified 05/24/17 16:50) meperidine [From Demerol] Allergy (Verified 05/24/17 16:50) Penicillins Allergy (Verified 05/24/17 17:37) rofecoxib [From Vioxx] Allergy (Verified 05/24/17 16:50) WATER PILLS Allergy (Uncoded 05/24/17 19:00) - Review of Systems ROS: No change since H&P - Vital Signs and I&O's Vital Signs: Temperature 97.5 F Pulse Rate [Right Brachial] 106 Pulse Rate 96 Respiratory Rate 20 Blood Pressure [Right Arm] 128/78 O2 Sat by Pulse Oximetry 93 Intake and Output: Intake & Output 05/27/17 05/28/17 05/29/17 05/30/17 11:59 11:59 11:59 11:59 Intake Total 1779 2089 1260 1100 Output Total 900 Balance 1779 2089 1260 200 - Physical Exam Oriented: Normal Eyes: Normal. negative: Blurred Vision, Diplopia, Discharge, Pain, Redness, Photophobia, Other Ear: Normal. negative: Right, Left, Swelling, Ecchymosis, Hemotypanum, Abrasion , Laceration Nose: Other (NASAL AND CHEST CONGESTION ) Throat: Normal Respiratory: Right, Left, Generalized, Wheezes, Rhonchi Cardiovascular: Normal. negative: S3, S4, Murmur : Normal. negative: Dysuria, Hematuria, Frequency, Discharge, Testicular Pain , Bleeding, , Other Auscultation: Bowel Sounds: Normal. negative: Bruit, Absent, Increased, Decreased, High Pitched, Other Palpation: Normal Tenderness: Normal. negative: Rebound, Guarding, Rigidity Skin: Normal Musculoskeletal: Normal Psychiatric: Normal Mood Description: Calm Affect: Normal Speech Pattern: Clear, Appropriate - Laboratory and Diagnostics Result Diagrams: 05/29/17 06:10 05/29/17 06:10 Labs: 05/24/17 18:00 Blood Blood Culture - Preliminary 05/24/17 17:55 Blood Blood Culture - Preliminary 05/24/17 18:23 Sputum - Expectorated Sputum Sputum Culture - Final 05/24/17 18:23 Sputum - Expectorated Sputum - Final Laboratory WBC 9.8 X10^3/uL (3.6-10.0) 05/29/17 06:10 RBC 4.65 X10^6/uL (3.5-5.4) 05/29/17 06:10 Hgb 14.8 g/dL (12.0-16.0) 05/29/17 06:10 Hct 41.6 % (36.0-47.0) 05/29/17 06:10 MCV 89.4 fL (80.0-100.0) 05/29/17 06:10 MCH 31.8 pg (27.0-34.0) 05/29/17 06:10 MCHC 35.6 g/dL (33.0-35.0) H 05/29/17 06:10 RDW 13.3 % (11.6-16.5) 05/29/17 06:10 Plt Count 245 X10^3/uL (150.0-450.0) 05/29/17 06:10 Plt Count Comment Adequate (ADEQUATE) 05/29/17 06:10 MPV 6.7 fL (7.4-11.0) L 05/29/17 06:10 Neut % 73.5 % (42.0-75.0) 05/29/17 06:10 Lymph % 16.0 % (21.0-51.0) L 05/29/17 06:10 [place] % 10.3 % (0.0-13.0) 05/29/17 06:10 Eos % 0.1 % (0.9-2.9) L 05/29/17 06:10 Baso % 0.1 % (0.2-1.0) L 05/29/17 06:10 Neut # 7.2 x10^3/uL (2.2-4.8) H 05/29/17 06:10 Lymph # 1.6 X10^3/uL (1.3-2.9) 05/29/17 06:10 [place] # 1.0 x10^3/uL (0.3-0.8) H 05/29/17 06:10 Eos # 0.0 x10^3/uL (0.0-0.2) 05/29/17 06:10 Baso # 0.0 X10^3/uL (0.0-0.1) 05/29/17 06:10 Absolute Nucleated RBC 0.0 /100WBC 05/29/17 06:10 Total Counted 100 05/29/17 06:10 Neutrophils % (Manual) 76 % (39-76) 05/29/17 06:10 Band Neutrophils % 4 % (0-10) 05/29/17 06:10 Lymphocytes % (Manual) 14 % (13-43) 05/29/17 06:10 Monocytes % (Manual) 6 % (4-9) 05/29/17 06:10 Plt Morphology Comment Normal (NORMAL) 05/29/17 06:10 RBC Morphology Normal (NORMAL) 05/29/17 06:10 Sample Site Lra 05/24/17 19:15 ABG pH 7.480 (7.35-7.45) H 05/24/17 19:15 ABG pCO2 40.0 mmHg (35.0-45.0) 05/24/17 19:15 ABG pO2 64.0 mmHg (80.0-100.0) L 05/24/17 19:15 ABG HCO3 29.8 mmol/L (22-26) H 05/24/17 19:15 ABG O2 Saturation 94.0 % (90-100) 05/24/17 19:15 ABG Base Excess 5.8 mmol/L (-2.0-2.0) H 05/24/17 19:15 Ajke Test Pos 05/24/17 19:15 A-a Gradient 86.0 mmHg 05/24/17 19:15 FiO2 28.000 05/24/17 19:15 Blood Gas Comments Belkys well mm 05/24/17 19:15 Sodium 124 mmol/L (136-145) L* 05/29/17 06:10 Corrected Sodium TNP 05/29/17 06:10 Potassium 4.7 mmol/L (3.5-5.1) 05/29/17 06:10 Chloride 91 mmol/L (98-107) L 05/29/17 06:10 Carbon Dioxide 27.4 mmol/L (21-32) 05/29/17 06:10 BUN 16 mg/dL (7-18) 05/29/17 06:10 Creatinine 0.61 mg/dL (0.55-1.02) 05/29/17 06:10 Est GFR (MDRD) Af Amer > 60 (>60) 05/29/17 06:10 Est GFR (MDRD) Non-Af > 60 (>60) 05/29/17 06:10 Glucose 108 mg/dL (65-99) H 05/29/17 06:10 Calcium 8.3 mg/dL (8.5-10.1) L 05/29/17 06:10 Corrected Calcium 9.2 mg/dL (8.5-10.1) 05/29/17 06:10 Total Bilirubin 0.70 mg/dL (0.2-1.0) 05/29/17 06:10 AST 26 Units/L (15-37) 05/29/17 06:10 ALT 29 Units/L (12-78) 01/29/18 06:10 Alkaline Phosphatase 39 Units/L (46-116) L 05/29/17 06:10 B-Natriuretic Peptide 239 pg/mL (0-79) H 05/24/17 18:00 Total Protein 5.9 g/dL (6.4-8.2) L 05/29/17 06:10 Albumin 2.9 g/dL (3.4-5.0) L 05/29/17 06:10 Globulin 3.0 g/dL (2.5-4.5) 05/29/17 06:10 Albumin/Globulin Ratio 1.0 Ratio (1.1-2.1) L 05/29/17 06:10 Influenza Type A (PCR) Positive (NEGATIVE) A 05/24/17 18:56 Influenza Type B (PCR) Negative (NEGATIVE) 05/24/17 18:56 - Plan (1) Bronchopneumonia Status: Acute Plan: CONTINUE LEVAQUIN, CONTINUE FORTAZ, CONTINUE RESPIRATORY TX AND SUPPLEMENTAL OXYGEN, SOLU-MEDROL 40MG AT 0600 & 1400, CONTINUE TO MONITOR (2) Influenza Status: Acute Plan: CONTINUE TAMIFLU, CONTINUE TO MONITOR (3) Constipation Status: Acute Qualifiers: Constipation type: slow transit constipation Qualified Code(s): K59.01 - Slow transit constipation Plan: COLACE 100MG BID, MILK OF MAGNESIA 15ML QID, MIRALAX DAILY, CONTINUE TO MONITOR
[2017-05-29] MEDS: BUTT CREAM (COMPOUND) TOP PRN (20:38)
[2017-05-30] MEDS ORDERED: NS 1/2 1000 ML IV 1,000 ML IV ONE (01:21)
[2017-05-30] MEDS: NS 1/2 1000 ML IV 1,000 ML IV SCH (01:42)
[2017-05-30 06:13] LABS: BASOPHILS % (AUTO) 0.1 % (0.2-1.0); EOSINOPHILS % (AUTO) 0.5 % (0.9-2.9); HEMATOCRIT 42.6 % (36.0-47.0); HEMOGLOBIN 15.1 g/dL (12.0-16.0); LYMPHOCYTES # (AUTO) 1.4 X10^3/uL (1.3-2.9); LYMPHOCYTES % (AUTO) 16.4 % (21.0-51.0); MEAN CORPUSCULAR HEMOGLOBIN 31.8 pg (27.0-34.0); MEAN CORPUSCULAR HGB CONC 35.5 g/dL (33.0-35.0); MEAN CORPUSCULAR VOLUME 89.7 fL (80.0-100.0); MEAN PLATELET VOLUME 6.7 fL (7.4-11.0); MONOCYTES # (AUTO) 0.7 x10^3/uL (0.3-0.8); MONOCYTES % (AUTO) 7.8 % (0.0-13.0); NEUTROPHILS # (AUTO) 6.6 x10^3/uL (2.2-4.8); NEUTROPHILS % (AUTO) 75.2 % (42.0-75.0); PLATELET COUNT 236 X10^3/uL (150.0-450.0); RED BLOOD COUNT 4.75 X10^6/uL (3.5-5.4); RED CELL DISTRIBUTION WIDTH 13.3 % (11.6-16.5); WHITE BLOOD COUNT 8.8 X10^3/uL (3.6-10.0)
[2017-05-30 06:30] LABS: BAND NEUTROPHILS % 2 % (0-10)
[2017-05-30 06:31] LABS: PLATELET MORPHOLOGY COMMENT NORMAL (NORMAL)
[2017-05-30 06:37] LABS: ALANINE AMINOTRANSFERASE 28 Units/L (12-78); ALBUMIN 2.8 g/dL (3.4-5.0); ALKALINE PHOSPHATASE 41 Units/L (46-116); ASPARTATE AMINO TRANSFERASE 19 Units/L (15-37); BLOOD UREA NITROGEN 17 mg/dL (7-18); CALCIUM 8.2 mg/dL (8.5-10.1); CARBON DIOXIDE 30.6 mmol/L (21-32); CHLORIDE 87 mmol/L (98-107); COR CA(FOR HYPOALB) 9.2 mg/dL (8.5-10.1); TOTAL PROTEIN 5.8 g/dL (6.4-8.2); eGFR BLACK RACES > 60 (>60); eGFR NON BLACK RACES > 60 (>60)
[2017-05-30 06:52] LABS: SODIUM 121 mmol/L (136-145)
[2017-05-30] MEDS: MIRALAX POWDER (1 DOSE 17GM) PO SCH (08:58)
[2017-05-30] MEDS: NS 1000 ML 1,000 ML IV SCH ×2 (08:58→18:55)
[2017-05-30] MEDS: MILK OF MAGNESIA PO SCH ×2 (08:58→12:18)
[2017-05-30] MEDS: COLACE CAP 100 MG PO SCH ×2 (08:59→20:12)
[2017-05-30] MEDS: MAALOX or MYLANTA PO PRN ×3 (11:20→20:11)
[2017-05-30] MEDS ORDERED: MILK OF MAGNESIA PO PRN (13:50)
--- NOTE | 2017-05-30 22:17 | PCM.PROG ---
Progress Note - Progress Note for Day of Date: 05/29/17 - Subjective Subjective: WAS A DIRECT ADMISSION YESTERDAY FOR BRONCHOPNEUMONIA AND INFLUENZA. TODAY, SHE IS ALERT AND ORIENTED, SITTING UP IN BED ON MORNING ROUNDS. SHE CONTINUES WITH COMPLAINTS OF MODERATE, GENERALIZED WEAKNESS AND BEING UNSTEADY WHEN ABULATING. SHE REPORTS HAVING A LARGE BOWEL MOVEMENT TODAY. ON EXAMINATION, HEART IS REGULAR IN RATE AND RHYTHM. BILATERAL LUNGS NOTED WITH DIMINISHED LUNG SOUNDS THROUGHOUT. SHE IS NOTED TO BE UTILIZING OXYGEN VIA NASAL CANNULA AT 2L/MIN. ABDOMEN IS ROUND, SOFT, AND NON-TENDER WITH NORMAL BOWEL SOUNDS NOTED IN ALL QUADRANTS. THERE IS NORMAL RANGE OF MOTION NOTED TO ALL EXTREMITIES. HER VITALS THIS MORNING ARE 98.0-82-20-94%-135/85. LABS WERE OBTAINED. ABNORMAL LAB VALUES INCLUDE THE FOLLOWING: SODIUM 124, CHLORIDE 91, GLUCOSE 108, CALCIUM 8.3, ALK PHOS 39, TOTAL PROTEIN 5.9, ALBUMIN 2.9. PHYSICAL THERAPY REPORTS THAT PATIENT IS COOPERATING WELL TODAY AND FEEL THOUGHT SHE WILL BENEFIT FROM CONTINUED PHYSICAL THERAPY. CASE MANAGEMENT IS ARRANGING FOR SHORT TERM PLACEMENT FOR PHYSICAL THERAPY. WE WILL CONTINUE WITH CURRENT PLAN OF CARE TODAY. WE PLAN TO FOLLOW UP WITH AM LABS AND CHEST XRAY AND CONTINUE TO MONITOR PATIENT. - Past Medical Family Social History Past Med/Fam/Surg Hx: No changes since H&P Allergies: Allergies benzonatate [From Tessalon Perles] Allergy (Verified 05/24/17 16:50) meperidine [From Demerol] Allergy (Verified 05/24/17 16:50) Penicillins Allergy (Verified 05/24/17 17:37) rofecoxib [From Vioxx] Allergy (Verified 05/24/17 16:50) WATER PILLS Allergy (Uncoded 05/24/17 19:00) - Review of Systems ROS: No change since H&P - Vital Signs and I&O's Vital Signs: Temperature 97.5 F Pulse Rate [Left Brachial] 86 Pulse Rate [Right Brachial] 84 Pulse Rate 83 Respiratory Rate 20 Blood Pressure [Left Arm] 126/66 Blood Pressure [Right Arm] 103/51 O2 Sat by Pulse Oximetry 98 Intake and Output: Intake & Output 05/28/17 05/29/17 05/30/17 05/31/17 11:59 11:59 11:59 11:59 Intake Total 2090 1260 2775 750 Output Total 900 Balance 2089 1260 1875 750 - Physical Exam Oriented: Normal Eyes: Normal. negative: Blurred Vision, Diplopia, Discharge, Pain, Redness, Photophobia, Other Ear: Normal. negative: Right, Left, Swelling, Ecchymosis, Hemotypanum, Abrasion , Laceration Nose: Other (NASAL AND CHEST CONGESTION ) Throat: Normal Respiratory: Right, Left, Generalized, Diminished Cardiovascular: Normal. negative: S3, S4, Murmur : Normal. negative: Dysuria, Hematuria, Frequency, Discharge, Testicular Pain , Bleeding, , Other Auscultation: Bowel Sounds: Normal. negative: Bruit, Absent, Increased, Decreased, High Pitched, Other Palpation: Normal Tenderness: Normal. negative: Rebound, Guarding, Rigidity Skin: Normal Musculoskeletal: Normal Psychiatric: Normal Mood Description: Calm Affect: Normal Speech Pattern: Clear, Appropriate - Laboratory and Diagnostics Result Diagrams: 05/30/17 04:55 05/30/17 04:55 Labs: 05/24/17 17:55 Blood Blood Culture - Final 05/24/17 18:00 Blood Blood Culture - Final 05/24/17 18:23 Sputum - Expectorated Sputum Sputum Culture - Final 05/24/17 18:23 Sputum - Expectorated Sputum - Final Laboratory WBC 8.8 X10^3/uL (3.6-10.0) 05/30/17 04:55 RBC 4.75 X10^6/uL (3.5-5.4) 05/30/17 04:55 Hgb 15.1 g/dL (12.0-16.0) 05/30/17 04:55 Hct 42.6 % (36.0-47.0) 05/30/17 04:55 MCV 89.7 fL (80.0-100.0) 05/30/17 04:55 MCH 31.8 pg (27.0-34.0) 05/30/17 04:55 MCHC 35.5 g/dL (33.0-35.0) H 05/30/17 04:55 RDW 13.3 % (11.6-16.5) 05/30/17 04:55 Plt Count 236 X10^3/uL (150.0-450.0) 05/30/17 04:55 Plt Count Comment Adequate (ADEQUATE) 05/30/17 04:55 MPV 6.7 fL (7.4-11.0) L 05/30/17 04:55 Neut % 75.2 % (42.0-75.0) H 05/30/17 04:55 Lymph % 16.4 % (21.0-51.0) L 05/30/17 04:55 [place] % 7.8 % (0.0-13.0) 05/30/17 04:55 Eos % 0.5 % (0.9-2.9) L 05/30/17 04:55 Baso % 0.1 % (0.2-1.0) L 05/30/17 04:55 Neut # 6.6 x10^3/uL (2.2-4.8) H 05/30/17 04:55 Lymph # 1.4 X10^3/uL (1.3-2.9) 05/30/17 04:55 [place] # 0.7 x10^3/uL (0.3-0.8) 05/30/17 04:55 Eos # 0.0 x10^3/uL (0.0-0.2) 05/30/17 04:55 Baso # 0.0 X10^3/uL (0.0-0.1) 05/30/17 04:55 Absolute Nucleated RBC 0.1 /100WBC 05/30/17 04:55 Total Counted 100 05/30/17 04:55 Neutrophils % (Manual) 66 % (39-76) 05/30/17 04:55 Band Neutrophils % 2 % (0-10) 05/30/17 04:55 Lymphocytes % (Manual) 26 % (13-43) 05/30/17 04:55 Monocytes % (Manual) 6 % (4-9) 05/30/17 04:55 Plt Morphology Comment Normal (NORMAL) 05/30/17 04:55 RBC Morphology Normal (NORMAL) 05/30/17 04:55 Sample Site Lra 05/24/17 19:15 ABG pH 7.480 (7.35-7.45) H 05/24/17 19:15 ABG pCO2 40.0 mmHg (35.0-45.0) 05/24/17 19:15 ABG pO2 64.0 mmHg (80.0-100.0) L 05/24/17 19:15 ABG HCO3 29.8 mmol/L (22-26) H 05/24/17 19:15 ABG O2 Saturation 94.0 % (90-100) 05/24/17 19:15 ABG Base Excess 5.8 mmol/L (-2.0-2.0) H 05/24/17 19:15 Jake Test Pos 05/24/17 19:15 A-a Gradient 86.0 mmHg 05/24/17 19:15 FiO2 28.000 05/24/17 19:15 Blood Gas Comments Belkys well mm 05/24/17 19:15 Sodium 121 mmol/L (136-145) L* 05/30/17 04:55 Corrected Sodium TNP 05/30/17 04:55 Potassium 4.8 mmol/L (3.5-5.1) 05/30/17 04:55 Chloride 87 mmol/L (98-107) L 05/30/17 04:55 Carbon Dioxide 30.6 mmol/L (21-32) 05/30/17 04:55 BUN 17 mg/dL (7-18) 05/30/17 04:55 Creatinine 0.60 mg/dL (0.55-1.02) 05/30/17 04:55 Est GFR (MDRD) Af Amer > 60 (>60) 05/30/17 04:55 Est GFR (MDRD) Non-Af > 60 (>60) 05/30/17 04:55 Glucose 94 mg/dL (65-99) 05/30/17 04:55 Calcium 8.2 mg/dL (8.5-10.1) L 05/30/17 04:55 Corrected Calcium 9.2 mg/dL (8.5-10.1) 05/30/17 04:55 Total Bilirubin 1.00 mg/dL (0.2-1.0) 05/30/17 04:55 AST 19 Units/L (15-37) 05/30/17 04:55 ALT 28 Units/L (12-78) 05/30/17 04:55 Alkaline Phosphatase 41 Units/L (46-116) L 05/30/17 04:55 B-Natriuretic Peptide 239 pg/mL (0-79) H 05/24/17 18:00 Total Protein 5.8 g/dL (6.4-8.2) L 05/30/17 04:55 Albumin 2.8 g/dL (3.4-5.0) L 05/30/17 04:55 Globulin 3.0 g/dL (2.5-4.5) 05/30/17 04:55 Albumin/Globulin Ratio 0.9 Ratio (1.1-2.1) L 05/30/17 04:55 Influenza Type A (PCR) Positive (NEGATIVE) A 05/24/17 18:56 Influenza Type B (PCR) Negative (NEGATIVE) 05/24/17 18:56 - Plan (1) Bronchopneumonia Status: Resolved Plan: SUPPLEMENTAL OXYGEN, CONTINUE TO MONITOR (2) Influenza Status: Resolved Plan: CONTINUE TO MONITOR (3) Constipation Status: Acute Qualifiers: Constipation type: slow transit constipation Qualified Code(s): K59.01 - Slow transit constipation Plan: COLACE 100MG BID, MILK OF MAGNESIA 15ML QID, MIRALAX DAILY, CONTINUE TO MONITOR (4) Generalized weakness Status: Acute Plan: CONTINUE PHYSICAL THERAPY, CONTINUE TO MONITOR
[2017-05-31] MEDS: NS 1000 ML 1,000 ML IV SCH ×4 (03:26→16:01)
[2017-05-31] MEDS: BUTT CREAM (COMPOUND) TOP PRN (03:27)
[2017-05-31 05:16] LABS: ALANINE AMINOTRANSFERASE 26 Units/L (12-78); ALKALINE PHOSPHATASE 44 Units/L (46-116); ASPARTATE AMINO TRANSFERASE 21 Units/L (15-37); BASOPHILS % (AUTO) 0.3 % (0.2-1.0); BLOOD UREA NITROGEN 15 mg/dL (7-18); CALCIUM 7.9 mg/dL (8.5-10.1); CARBON DIOXIDE 26.3 mmol/L (21-32); CHLORIDE 90 mmol/L (98-107); COR CA(FOR HYPOALB) 8.7 mg/dL (8.5-10.1); CREATININE 0.59 mg/dL (0.55-1.02); EOSINOPHILS % (AUTO) 0.3 % (0.9-2.9); HEMATOCRIT 43.9 % (36.0-47.0); HEMOGLOBIN 15.5 g/dL (12.0-16.0); LYMPHOCYTES # (AUTO) 1.1 X10^3/uL (1.3-2.9); LYMPHOCYTES % (AUTO) 11.6 % (21.0-51.0); MEAN CORPUSCULAR HEMOGLOBIN 31.8 pg (27.0-34.0); MEAN CORPUSCULAR HGB CONC 35.3 g/dL (33.0-35.0); MEAN CORPUSCULAR VOLUME 90.2 fL (80.0-100.0); MEAN PLATELET VOLUME 6.5 fL (7.4-11.0); MONOCYTES # (AUTO) 0.5 x10^3/uL (0.3-0.8); MONOCYTES % (AUTO) 5.7 % (0.0-13.0); NEUTROPHILS # (AUTO) 7.6 x10^3/uL (2.2-4.8); NEUTROPHILS % (AUTO) 82.1 % (42.0-75.0); PLATELET COUNT 229 X10^3/uL (150.0-450.0); RED BLOOD COUNT 4.86 X10^6/uL (3.5-5.4); RED CELL DISTRIBUTION WIDTH 13.3 % (11.6-16.5); WHITE BLOOD COUNT 9.3 X10^3/uL (3.6-10.0); eGFR BLACK RACES > 60 (>60); eGFR NON BLACK RACES > 60 (>60)
[2017-05-31 05:20] LABS: SODIUM 122 mmol/L (136-145)
[2017-05-31] MEDS: COLACE CAP 100 MG PO SCH ×3 (08:18→22:25)
[2017-05-31] MEDS: MIRALAX POWDER (1 DOSE 17GM) PO SCH (08:18)
[2017-05-31] MEDS: MAALOX or MYLANTA PO PRN (08:29)
[2017-05-31] MEDS: PEPCID 20 MG IV PREMIX* 20 MG/50 ML BAG IV SCH ×2 (11:54→20:24)
[2017-05-31] MEDS: MEGACE PO SCH ×2 (11:54→20:25)
[2017-05-31] MEDS: LEVSIN/MAALOX/LIDOC VISC PO SCH ×4 (11:55→20:24)
[2017-05-31] MEDS: PROTONIX INJ 40 MG VIAL IVP SCH ×2 (11:55→20:25)
[2017-05-31] MEDS: THERMOTABS PO SCH ×3 (13:01→20:25)
--- NOTE | 2017-05-31 20:14 | PCM.PROG ---
Progress Note - Progress Note for Day of Date: 05/30/17 - Subjective Subjective: WAS A DIRECT ADMISSION YESTERDAY FOR BRONCHOPNEUMONIA AND INFLUENZA. TODAY, SHE IS ALERT AND ORIENTED, SITTING UP IN BED ON MORNING ROUNDS. SHE CONTINUES WITH COMPLAINTS OF MODERATE, GENERALIZED WEAKNESS AND BEING UNSTEADY WHEN ABULATING. ON EXAMINATION, HEART IS REGULAR IN RATE AND RHYTHM. BILATERAL LUNGS NOTED WITH DIMINISHED LUNG SOUNDS THROUGHOUT. SHE IS NOTED TO BE UTILIZING OXYGEN VIA NASAL CANNULA AT 2L/MIN. ABDOMEN IS ROUND, SOFT , AND NON-TENDER WITH NORMAL BOWEL SOUNDS NOTED IN ALL QUADRANTS. THERE IS NORMAL RANGE OF MOTION NOTED TO ALL EXTREMITIES. HER VITALS THIS MORNING ARE 97.5-81-20-93%-148/72. LABS WERE OBTAINED. TODAY, HER SODIUM HAS DECREASED FROM 124 TO 121. OTHERWISE, SHE IS HEMODYNAMICALLY STABLE. SHE CONTINUES TO BE COOPERATIVE WITH PHYSICAL THERAPY. CASE MANAGEMENT IS ARRANGING FOR SHORT TERM PLACEMENT FOR PHYSICAL THERAPY AFTER WE CORRECT HER SODIUM. TODAY, WE WILL CHANGE IVF TO NORMAL SALINE AT 100ML/HR. WE PLAN TO FOLLOW UP WITH AM LABS AND CHEST XRAY AND CONTINUE TO MONITOR PATIENT. - Past Medical Family Social History Past Med/Fam/Surg Hx: No changes since H&P Allergies: Allergies benzonatate [From Tessalon Perles] Allergy (Verified 05/24/17 16:50) meperidine [From Demerol] Allergy (Verified 05/24/17 16:50) Penicillins Allergy (Verified 05/24/17 17:37) rofecoxib [From Vioxx] Allergy (Verified 05/24/17 16:50) WATER PILLS Allergy (Uncoded 05/24/17 19:00) - Review of Systems ROS: No change since H&P - Vital Signs and I&O's Vital Signs: Temperature 97.9 F Pulse Rate [Left Brachial] 98 Pulse Rate [Right Brachial] 84 Pulse Rate 83 Respiratory Rate 20 Blood Pressure [Left Arm] 131/55 Blood Pressure [Right Arm] 103/51 O2 Sat by Pulse Oximetry 98 Intake and Output: Intake & Output 05/29/17 05/30/17 05/31/17 06/01/17 11:59 11:59 11:59 11:59 Intake Total 1260 2775 2275 1500 Output Total 900 Balance 1260 1875 2275 1500 - Physical Exam Oriented: Normal Eyes: Normal. negative: Blurred Vision, Diplopia, Discharge, Pain, Redness, Photophobia, Other Ear: Normal. negative: Right, Left, Swelling, Ecchymosis, Hemotypanum, Abrasion , Laceration Nose: Other (NASAL AND CHEST CONGESTION ) Throat: Normal Respiratory: Right, Left, Generalized, Diminished Cardiovascular: Normal. negative: S3, S4, Murmur : Normal. negative: Dysuria, Hematuria, Frequency, Discharge, Testicular Pain , Bleeding, , Other Auscultation: Bowel Sounds: Normal. negative: Bruit, Absent, Increased, Decreased, High Pitched, Other Palpation: Normal Tenderness: Normal. negative: Rebound, Guarding, Rigidity Skin: Normal Musculoskeletal: Normal Psychiatric: Normal Mood Description: Calm Affect: Normal Speech Pattern: Clear, Appropriate - Laboratory and Diagnostics Result Diagrams: 05/31/17 04:53 05/31/17 04:53 Labs: 05/24/17 17:55 Blood Blood Culture - Final 05/24/17 18:00 Blood Blood Culture - Final 05/24/17 18:23 Sputum - Expectorated Sputum Sputum Culture - Final 05/24/17 18:23 Sputum - Expectorated Sputum - Final Laboratory WBC 9.3 X10^3/uL (3.6-10.0) 05/31/17 04:53 RBC 4.86 X10^6/uL (3.5-5.4) 05/31/17 04:53 Hgb 15.5 g/dL (12.0-16.0) 05/31/17 04:53 Hct 43.9 % (36.0-47.0) 05/31/17 04:53 MCV 90.2 fL (80.0-100.0) 05/31/17 04:53 MCH 31.8 pg (27.0-34.0) 05/31/17 04:53 MCHC 35.3 g/dL (33.0-35.0) H 05/31/17 04:53 RDW 13.3 % (11.6-16.5) 05/31/17 04:53 Plt Count 229 X10^3/uL (150.0-450.0) 05/31/17 04:53 Plt Count Comment Adequate (ADEQUATE) 05/30/17 04:55 MPV 6.5 fL (7.4-11.0) L 05/31/17 04:53 Neut % 82.1 % (42.0-75.0) H 05/31/17 04:53 Lymph % 11.6 % (21.0-51.0) L 05/31/17 04:53 [place] % 5.7 % (0.0-13.0) 05/31/17 04:53 Eos % 0.3 % (0.9-2.9) L 05/31/17 04:53 Baso % 0.3 % (0.2-1.0) 05/31/17 04:53 Neut # 7.6 x10^3/uL (2.2-4.8) H 05/31/17 04:53 Lymph # 1.1 X10^3/uL (1.3-2.9) L 05/31/17 04:53 [place] # 0.5 x10^3/uL (0.3-0.8) 05/31/17 04:53 Eos # 0.0 x10^3/uL (0.0-0.2) 05/31/17 04:53 Baso # 0.0 X10^3/uL (0.0-0.1) 05/31/17 04:53 Absolute Nucleated RBC 0.1 /100WBC 05/31/17 04:53 Total Counted 100 05/30/17 04:55 Neutrophils % (Manual) 66 % (39-76) 05/30/17 04:55 Band Neutrophils % 2 % (0-10) 05/30/17 04:55 Lymphocytes % (Manual) 26 % (13-43) 05/30/17 04:55 Monocytes % (Manual) 6 % (4-9) 05/30/17 04:55 Plt Morphology Comment Normal (NORMAL) 05/30/17 04:55 RBC Morphology Normal (NORMAL) 05/30/17 04:55 Sample Site Lra 05/24/17 19:15 ABG pH 7.480 (7.35-7.45) H 05/24/17 19:15 ABG pCO2 40.0 mmHg (35.0-45.0) 05/24/17 19:15 ABG pO2 64.0 mmHg (80.0-100.0) L 05/24/17 19:15 ABG HCO3 29.8 mmol/L (22-26) H 05/24/17 19:15 ABG O2 Saturation 94.0 % (90-100) 05/24/17 19:15 ABG Base Excess 5.8 mmol/L (-2.0-2.0) H 05/24/17 19:15 Jake Test Pos 05/24/17 19:15 A-a Gradient 86.0 mmHg 05/24/17 19:15 FiO2 28.000 05/24/17 19:15 Blood Gas Comments Belkys well mm 05/24/17 19:15 Sodium 122 mmol/L (136-145) L* 05/31/17 04:53 Corrected Sodium TNP 05/31/17 04:53 Potassium 4.3 mmol/L (3.5-5.1) 05/31/17 04:53 Chloride 90 mmol/L (98-107) L 05/31/17 04:53 Carbon Dioxide 26.3 mmol/L (21-32) 05/31/17 04:53 BUN 15 mg/dL (7-18) 05/31/17 04:53 Creatinine 0.59 mg/dL (0.55-1.02) 05/31/17 04:53 Est GFR (MDRD) Af Amer > 60 (>60) 05/31/17 04:53 Est GFR (MDRD) Non-Af > 60 (>60) 05/31/17 04:53 Glucose 104 mg/dL (65-99) H 05/31/17 04:53 Calcium 7.9 mg/dL (8.5-10.1) L 05/31/17 04:53 Corrected Calcium 8.7 mg/dL (8.5-10.1) 05/31/17 04:53 Total Bilirubin 1.10 mg/dL (0.2-1.0) H 05/31/17 04:53 AST 21 Units/L (15-37) 05/31/17 04:53 ALT 26 Units/L (12-78) 05/31/17 04:53 Alkaline Phosphatase 44 Units/L (46-116) L 05/31/17 04:53 B-Natriuretic Peptide 239 pg/mL (0-79) H 05/24/17 18:00 Total Protein 6.0 g/dL (6.4-8.2) L 05/31/17 04:53 Albumin 3.0 g/dL (3.4-5.0) L 05/31/17 04:53 Globulin 3.0 g/dL (2.5-4.5) 05/31/17 04:53 Albumin/Globulin Ratio 1.0 Ratio (1.1-2.1) L 05/31/17 04:53 Influenza Type A (PCR) Positive (NEGATIVE) A 05/24/17 18:56 Influenza Type B (PCR) Negative (NEGATIVE) 05/24/17 18:56 - Plan (1) Hyponatremia Status: Acute Plan: NORMAL SALINE AT 100ML/HR, CONTINUE TO MONITOR (2) Generalized weakness Status: Acute Plan: CONTINUE PHYSICAL THERAPY, CONTINUE TO MONITOR (3) Constipation Status: Acute Qualifiers: Constipation type: slow transit constipation Qualified Code(s): K59.01 - Slow transit constipation Plan: COLACE 100MG BID, MILK OF MAGNESIA 15ML QID, MIRALAX DAILY, CONTINUE TO MONITOR (4) Bronchopneumonia Status: Resolved Plan: SUPPLEMENTAL OXYGEN, CONTINUE TO MONITOR (5) Influenza Status: Resolved Plan: CONTINUE TO MONITOR
[2017-06-01] MEDS: NS 1000 ML 1,000 ML IV SCH ×2 (00:20→12:25)
[2017-06-01 05:37] LABS: BASOPHILS % (AUTO) 0.3 % (0.2-1.0); EOSINOPHILS % (AUTO) 0.5 % (0.9-2.9); HEMATOCRIT 42.3 % (36.0-47.0); HEMOGLOBIN 14.8 g/dL (12.0-16.0); LYMPHOCYTES # (AUTO) 1.1 X10^3/uL (1.3-2.9); LYMPHOCYTES % (AUTO) 12.1 % (21.0-51.0); MEAN CORPUSCULAR HEMOGLOBIN 31.6 pg (27.0-34.0); MEAN CORPUSCULAR HGB CONC 34.9 g/dL (33.0-35.0); MEAN CORPUSCULAR VOLUME 90.5 fL (80.0-100.0); MEAN PLATELET VOLUME 6.7 fL (7.4-11.0); MONOCYTES # (AUTO) 0.6 x10^3/uL (0.3-0.8); MONOCYTES % (AUTO) 7.2 % (0.0-13.0); NEUTROPHILS # (AUTO) 6.9 x10^3/uL (2.2-4.8); NEUTROPHILS % (AUTO) 79.9 % (42.0-75.0); PLATELET COUNT 215 X10^3/uL (150.0-450.0); RED BLOOD COUNT 4.68 X10^6/uL (3.5-5.4); RED CELL DISTRIBUTION WIDTH 13.2 % (11.6-16.5); WHITE BLOOD COUNT 8.7 X10^3/uL (3.6-10.0)
[2017-06-01 05:50] LABS: ALANINE AMINOTRANSFERASE 25 Units/L (12-78); ALBUMIN 2.8 g/dL (3.4-5.0); ALKALINE PHOSPHATASE 40 Units/L (46-116); ASPARTATE AMINO TRANSFERASE 18 Units/L (15-37); BLOOD UREA NITROGEN 9 mg/dL (7-18); CALCIUM 7.9 mg/dL (8.5-10.1); CARBON DIOXIDE 26.3 mmol/L (21-32); CHLORIDE 92 mmol/L (98-107); COR CA(FOR HYPOALB) 8.9 mg/dL (8.5-10.1); CREATININE 0.52 mg/dL (0.55-1.02); TOTAL PROTEIN 5.6 g/dL (6.4-8.2); eGFR BLACK RACES > 60 (>60); eGFR NON BLACK RACES > 60 (>60)
[2017-06-01 06:09] LABS: SODIUM 123 mmol/L (136-145)
[2017-06-01] MEDS: PEPCID 20 MG IV PREMIX* 20 MG/50 ML BAG IV SCH ×2 (08:55→20:24)
[2017-06-01] MEDS: COLACE CAP 100 MG PO SCH ×2 (08:55→20:25)
[2017-06-01] MEDS: MEGACE PO SCH ×2 (08:55→20:25)
[2017-06-01] MEDS: LEVSIN/MAALOX/LIDOC VISC PO SCH ×4 (08:55→20:35)
[2017-06-01] MEDS: MIRALAX POWDER (1 DOSE 17GM) PO SCH (08:55)
[2017-06-01] MEDS: PROTONIX INJ 40 MG VIAL IVP SCH ×2 (08:56→20:25)
[2017-06-01] MEDS: THERMOTABS PO SCH ×6 (08:56→22:15)
[2017-06-01] MEDS ORDERED: PEPCID TAB 20 MG PO SCH (09:00)
[2017-06-01] MEDS: MAALOX or MYLANTA PO SCH ×4 (12:23→22:16)
--- NOTE | 2017-06-01 15:48 | RAD ---
HISTORY: Abdominal pain. Distention. Study: KUB Comparison: None Findings: There is a moderate to large amount of both large and small bowel gas. The bowel does not appear to be appreciably distended. There is what appears to be a large soft tissue density the anatomic pelvi s, possibly a distended urinary bladder versus etiologies such as an enlarged uterus. . Other etiolo gies cannot be excluded. Patient status post cholecystectomy. Moderate osteopenia is noted. Mild-t o-moderate degenerative changes noted in the lumbar spine and hips IMPRESSION: 1. Moderate to large amount of both large and small bowel gas. The bowel does not appear to be dist ended. This could be due to an ileus or developing obstruction. Clinical correlation is recommended . 2. Soft tissue density in the anatomic pelvis, appearing to displace bowel superiorly. This could b e a distended urinary bladder, large uterus or other pelvic mass. Follow-up pelvic ultrasound is rec ommended. Reported By:
[2017-06-02] MEDS: THERMOTABS PO SCH ×9 (01:02→22:24)
[2017-06-02] MEDS: NS 1000 ML 1,000 ML IV SCH ×2 (01:02→17:08)
[2017-06-02] MEDS: MAALOX or MYLANTA PO SCH ×6 (04:08→22:24)
[2017-06-02 05:19] LABS: BASOPHILS % (AUTO) 0.4 % (0.2-1.0); EOSINOPHILS % (AUTO) 0.3 % (0.9-2.9); HEMATOCRIT 43.6 % (36.0-47.0); HEMOGLOBIN 15.1 g/dL (12.0-16.0); LYMPHOCYTES % (AUTO) 9.9 % (21.0-51.0); MEAN CORPUSCULAR HEMOGLOBIN 31.7 pg (27.0-34.0); MEAN CORPUSCULAR HGB CONC 34.6 g/dL (33.0-35.0); MEAN CORPUSCULAR VOLUME 91.6 fL (80.0-100.0); MEAN PLATELET VOLUME 6.8 fL (7.4-11.0); MONOCYTES # (AUTO) 0.7 x10^3/uL (0.3-0.8); MONOCYTES % (AUTO) 7.3 % (0.0-13.0); NEUTROPHILS # (AUTO) 8.1 x10^3/uL (2.2-4.8); NEUTROPHILS % (AUTO) 82.1 % (42.0-75.0); PLATELET COUNT 204 X10^3/uL (150.0-450.0); RED BLOOD COUNT 4.77 X10^6/uL (3.5-5.4); RED CELL DISTRIBUTION WIDTH 13.6 % (11.6-16.5); WHITE BLOOD COUNT 9.9 X10^3/uL (3.6-10.0)
[2017-06-02 05:38] LABS: ALANINE AMINOTRANSFERASE 26 Units/L (12-78); ALBUMIN 3.1 g/dL (3.4-5.0); ALKALINE PHOSPHATASE 44 Units/L (46-116); ASPARTATE AMINO TRANSFERASE 21 Units/L (15-37); BLOOD UREA NITROGEN 11 mg/dL (7-18); CALCIUM 8.1 mg/dL (8.5-10.1); CARBON DIOXIDE 26.2 mmol/L (21-32); CHLORIDE 93 mmol/L (98-107); COR CA(FOR HYPOALB) 8.8 mg/dL (8.5-10.1); TOTAL PROTEIN 6.1 g/dL (6.4-8.2); eGFR BLACK RACES > 60 (>60); eGFR NON BLACK RACES > 60 (>60)
[2017-06-02 06:06] LABS: SODIUM 125 mmol/L (136-145)
--- NOTE | 2017-06-02 07:26 | RAD ---
Examination: KUB History: Pain and distention Comparison 06/01/2017 Findings: There is moderate gaseous distention of bowel, primarily colon. Some small bowel dilatation may be present as well. There is decreasing soft tissue density previously described in the pelvic c avity. No developing ascites or visceral enlargement is noted. There are surgical clips in the right upper quadrant. Impression: Persistent intestinal distention most consistent with ileus, less likely a distal obstruc tion. Continued imaging follow-up suggested if developing bowel obstruction or ischemia is a clinical concern. Reported By:
[2017-06-02] MEDS: COLACE CAP 100 MG PO SCH ×2 (10:04→20:38)
[2017-06-02] MEDS: LEVSIN/MAALOX/LIDOC VISC PO SCH ×4 (10:04→20:38)
[2017-06-02] MEDS: PROTONIX INJ 40 MG VIAL IVP SCH ×2 (10:05→20:37)
[2017-06-02] MEDS: MEGACE PO SCH ×2 (10:05→20:37)
[2017-06-02] MEDS: MIRALAX POWDER (1 DOSE 17GM) PO SCH (10:05)
[2017-06-02] MEDS: PEPCID 20 MG IV PREMIX* 20 MG/50 ML BAG IV SCH ×2 (10:05→20:37)
--- NOTE | 2017-06-02 11:08 | US ---
History: Lower abdominal pain Study: Ultrasound pelvis Findings: Transabdominal imaging of the pelvis demonstrates a tiny midline uterus structure measuring 5.7 x 2.1 x 4.6 cm the endometrium is almost indiscernible. Within the right adnexal region is a 9.5 x 8.1 x 8.6 cm hypoechoic mass. The left ovary could not be visualized. Impression: Right adnexal mass. Is difficult to tell whether this is a cyst or a solid lesion and fol low-up CT of the pelvis without and with contrast may be of further benefit. Reported By:
[2017-06-02 17:58] LABS: BILIRUBIN,URINE NEGATIVE (NEGATIVE); BLOOD/HEMOGLOBIN,URINE NEGATIVE (NEGATIVE); GLUCOSE, URINE NEGATIVE (NEGATIVE); KETONES,URINE NEGATIVE (NEGATIVE); LEUKOCYTE ESTERASE ,URINE NEGATIVE (NEGATIVE); NITRITES,URINE NEGATIVE (NEGATIVE); PROTEIN,URINE NEGATIVE (NEGATIVE); UROBILINOGEN,URINE NORMAL (NORMAL)
[2017-06-02 18:00] LABS: APPEARANCE,URINE CLEAR (CLEAR); COLOR,URINE YELLOW (YELLOW)
[2017-06-02 18:14] LABS: RBC,URINE NONE SEEN /HPF (NEGATIVE); SQUAMOUS EPITHELIAL CELL,UR FEW /HPF (NEGATIVE)
[2017-06-02 18:15] LABS: AMORPHOUS SEDIMENT,UR TRACE /HPF (NEGATIVE); BACTERIA,URINE NEGATIVE /HPF (NEGATIVE)
[2017-06-02] MEDS ORDERED: ZOFRAN INJ 4 MG VIAL IVP PRN (18:18)
--- NOTE | 2017-06-02 18:22 | PCM.PROG ---
Progress Note - Progress Note for Day of Date: 05/31/17 - Subjective Subjective: WAS A DIRECT ADMISSION YESTERDAY FOR BRONCHOPNEUMONIA AND INFLUENZA. TODAY, SHE IS ALERT AND ORIENTED, SITTING UP IN BED ON MORNING ROUNDS. SHE CONTINUES WITH COMPLAINTS OF GENERALIZED WEAKNESS, SORE THROAT, AND DECREASED APPETITE. SHE ALSO REPORTS MILD ABDOMINAL PAIN. ON EXAMINATION, HEART IS REGULAR IN RATE AND RHYTHM. BILATERAL LUNGS NOTED WITH DIMINISHED LUNG SOUNDS THROUGHOUT. SHE IS NOTED TO BE UTILIZING OXYGEN VIA NASAL CANNULA AT 2L/ MIN. ABDOMEN IS DISTENDED AND NOTED WITH MILD, DIFFUSE ABDOMINAL PAIN TO PALPATION. NORMAL BOWEL SOUNDS NOTED IN ALL QUADRANTS. THERE IS NORMAL RANGE OF MOTION NOTED TO ALL EXTREMITIES. HER VITALS THIS MORNING ARE 97.4-69-20-98%-147/ 63. LABS WERE OBTAINED. TODAY, HER SODIUM HAS INCREASED FROM 121 TO 122. OTHERWISE, SHE IS HEMODYNAMICALLY STABLE. SHE CONTINUES TO BE COOPERATIVE WITH PHYSICAL THERAPY. TODAY, WE WILL START MEGACE 40MG PO BID, GI COCKTAIL 15ML PO QID, PROTONIX 40MG PO BID, PEPCID 20MG PO Q12H, AND SALT TABLETS TWICE A DAY. WE PLAN TO FOLLOW UP WITH AM LABS AND CHEST XRAY AND CONTINUE TO MONITOR PATIENT. - Past Medical Family Social History Past Med/Fam/Surg Hx: No changes since H&P Allergies: Allergies benzonatate [From Tessalon Perles] Allergy (Verified 05/24/17 16:50) meperidine [From Demerol] Allergy (Verified 05/24/17 16:50) Penicillins Allergy (Verified 05/24/17 17:37) rofecoxib [From Vioxx] Allergy (Verified 05/24/17 16:50) WATER PILLS Allergy (Uncoded 05/24/17 19:00) - Review of Systems ROS: No change since H&P - Vital Signs and I&O's Vital Signs: Temperature 98.2 F Pulse Rate [Left Brachial] 74 Pulse Rate [Right Brachial] 84 Pulse Rate 109 Respiratory Rate 20 Blood Pressure [Left Arm] 139/71 Blood Pressure [Right Arm] 121/58 O2 Sat by Pulse Oximetry 97 Intake and Output: Intake & Output 05/31/17 06/01/17 06/02/17 06/03/17 11:59 11:59 11:59 11:59 Intake Total 2275 3127 2709 1040 Balance 2275 3127 2709 1040 - Physical Exam Oriented: Normal Eyes: Normal. negative: Blurred Vision, Diplopia, Discharge, Pain, Redness, Photophobia, Other Ear: Normal. negative: Right, Left, Swelling, Ecchymosis, Hemotypanum, Abrasion , Laceration Nose: Other (NASAL AND CHEST CONGESTION ) Throat: Normal Respiratory: Right, Left, Generalized, Diminished Cardiovascular: Normal. negative: S3, S4, Murmur : Normal. negative: Dysuria, Hematuria, Frequency, Discharge, Testicular Pain , Bleeding, , Other Auscultation: Bowel Sounds: Normal. negative: Bruit, Absent, Increased, Decreased, High Pitched, Other Palpation: Normal Tenderness: Diffuse, Mild. negative: Rebound, Guarding, Rigidity Skin: Normal Musculoskeletal: Normal Psychiatric: Normal Mood Description: Calm Affect: Normal Speech Pattern: Clear, Appropriate - Laboratory and Diagnostics Result Diagrams: 06/02/17 04:17 06/02/17 04:17 Labs: 05/24/17 17:55 Blood Blood Culture - Final 05/24/17 18:00 Blood Blood Culture - Final 05/24/17 18:23 Sputum - Expectorated Sputum Sputum Culture - Final 05/24/17 18:23 Sputum - Expectorated Sputum - Final Laboratory WBC 9.9 X10^3/uL (3.6-10.0) 06/02/17 04:17 RBC 4.77 X10^6/uL (3.5-5.4) 06/02/17 04:17 Hgb 15.1 g/dL (12.0-16.0) 06/02/17 04:17 Hct 43.6 % (36.0-47.0) 06/02/17 04:17 MCV 91.6 fL (80.0-100.0) 06/02/17 04:17 MCH 31.7 pg (27.0-34.0) 06/02/17 04:17 MCHC 34.6 g/dL (33.0-35.0) 06/02/17 04:17 RDW 13.6 % (11.6-16.5) 06/02/17 04:17 Plt Count 204 X10^3/uL (150.0-450.0) 06/02/17 04:17 Plt Count Comment Adequate (ADEQUATE) 05/30/17 04:55 MPV 6.8 fL (7.4-11.0) L 06/02/17 04:17 Neut % 82.1 % (42.0-75.0) H 06/02/17 04:17 Lymph % 9.9 % (21.0-51.0) L 06/02/17 04:17 [place] % 7.3 % (0.0-13.0) 06/02/17 04:17 Eos % 0.3 % (0.9-2.9) L 06/02/17 04:17 Baso % 0.4 % (0.2-1.0) 06/02/17 04:17 Neut # 8.1 x10^3/uL (2.2-4.8) H 06/02/17 04:17 Lymph # 1.0 X10^3/uL (1.3-2.9) L 06/02/17 04:17 [place] # 0.7 x10^3/uL (0.3-0.8) 06/02/17 04:17 Eos # 0.0 x10^3/uL (0.0-0.2) 06/02/17 04:17 Baso # 0.0 X10^3/uL (0.0-0.1) 06/02/17 04:17 Absolute Nucleated RBC 0.0 /100WBC 06/02/17 04:17 Total Counted 100 05/30/17 04:55 Neutrophils % (Manual) 66 % (39-76) 05/30/17 04:55 Band Neutrophils % 2 % (0-10) 05/30/17 04:55 Lymphocytes % (Manual) 26 % (13-43) 05/30/17 04:55 Monocytes % (Manual) 6 % (4-9) 05/30/17 04:55 Plt Morphology Comment Normal (NORMAL) 05/30/17 04:55 RBC Morphology Normal (NORMAL) 05/30/17 04:55 Sample Site Lra 05/24/17 19:15 ABG pH 7.480 (7.35-7.45) H 05/24/17 19:15 ABG pCO2 40.0 mmHg (35.0-45.0) 05/24/17 19:15 ABG pO2 64.0 mmHg (80.0-100.0) L 05/24/17 19:15 ABG HCO3 29.8 mmol/L (22-26) H 05/24/17 19:15 ABG O2 Saturation 94.0 % (90-100) 05/24/17 19:15 ABG Base Excess 5.8 mmol/L (-2.0-2.0) H 05/24/17 19:15 Jake Test Pos 05/24/17 19:15 A-a Gradient 86.0 mmHg 05/24/17 19:15 FiO2 28.000 05/24/17 19:15 Blood Gas Comments Belkys well mm 05/24/17 19:15 Sodium 125 mmol/L (136-145) L* 06/02/17 04:17 Corrected Sodium TNP 06/02/17 04:17 Potassium 4.4 mmol/L (3.5-5.1) 06/02/17 04:17 Chloride 93 mmol/L (98-107) L 06/02/17 04:17 Carbon Dioxide 26.2 mmol/L (21-32) 06/02/17 04:17 BUN 11 mg/dL (7-18) 06/02/17 04:17 Creatinine 0.60 mg/dL (0.55-1.02) 06/02/17 04:17 Est GFR (MDRD) Af Amer > 60 (>60) 06/02/17 04:17 Est GFR (MDRD) Non-Af > 60 (>60) 06/02/17 04:17 Glucose 103 mg/dL (65-99) H 06/02/17 04:17 Calcium 8.1 mg/dL (8.5-10.1) L 06/02/17 04:17 Corrected Calcium 8.8 mg/dL (8.5-10.1) 06/02/17 04:17 Total Bilirubin 1.10 mg/dL (0.2-1.0) H 06/02/17 04:17 AST 21 Units/L (15-37) 06/02/17 04:17 ALT 26 Units/L (12-78) 06/02/17 04:17 Alkaline Phosphatase 44 Units/L (46-116) L 06/02/17 04:17 B-Natriuretic Peptide 239 pg/mL (0-79) H 05/24/17 18:00 Total Protein 6.1 g/dL (6.4-8.2) L 06/02/17 04:17 Albumin 3.1 g/dL (3.4-5.0) L 06/02/17 04:17 Globulin 3.0 g/dL (2.5-4.5) 06/02/17 04:17 Albumin/Globulin Ratio 1.0 Ratio (1.1-2.1) L 06/02/17 04:17 Specimen Type Catherized urine 06/02/17 17:46 Urine Color Yellow (YELLOW) 06/02/17 17:46 Urine Appearance Clear (CLEAR) 06/02/17 17:46 Urine pH 7.0 (5.0 - 8.0) 06/02/17 17:46 Ur Specific [place] 1.010 (1.000-1.030) 06/02/17 17:46 Urine Protein Negative (NEGATIVE) 06/02/17 17:46 Urine Glucose (UA) Negative (NEGATIVE) 06/02/17 17:46 Urine Ketones Negative (NEGATIVE) 06/02/17 17:46 Urine Occult Blood Negative (NEGATIVE) 06/02/17 17:46 Urine Nitrite Negative (NEGATIVE) 06/02/17 17:46 Urine Bilirubin Negative (NEGATIVE) 06/02/17 17:46 Urine Urobilinogen Normal (NORMAL) 06/02/17 17:46 Ur Leukocyte Esterase Negative (NEGATIVE) 06/02/17 17:46 Urine RBC None seen /HPF (NEGATIVE) 06/02/17 17:46 Urine WBC Rare /HPF (NEGATIVE) 06/02/17 17:46 Ur Squamous Epith Cells Few /HPF (NEGATIVE) 06/02/17 17:46 Amorphous Sediment Trace /HPF (NEGATIVE) 06/02/17 17:46 Urine Bacteria Negative /HPF (NEGATIVE) 06/02/17 17:46 Ur Culture Indicated? No/not indicated 06/02/17 17:46 Influenza Type A (PCR) Positive (NEGATIVE) A 05/24/17 18:56 Influenza Type B (PCR) Negative (NEGATIVE) 05/24/17 18:56 - Plan (1) Hyponatremia Status: Acute Plan: SALT TABS Q3H, NORMAL SALINE AT 100ML/HR, CONTINUE TO MONITOR (2) Generalized weakness Status: Acute Plan: CONTINUE PHYSICAL THERAPY, CONTINUE TO MONITOR (3) Constipation Status: Acute Qualifiers: Constipation type: slow transit constipation Qualified Code(s): K59.01 - Slow transit constipation Plan: COLACE 100MG BID, MILK OF MAGNESIA 15ML QID, MIRALAX DAILY, CONTINUE TO MONITOR (4) Bronchopneumonia Status: Resolved Plan: SUPPLEMENTAL OXYGEN, CONTINUE TO MONITOR (5) Influenza Status: Resolved Plan: CONTINUE TO MONITOR (6) Abdominal pain Status: Acute Qualifiers: Abdominal location: generalized Qualified Code(s): R10.84 - Generalized abdominal pain Plan: OBTAIN KUB, CONTINUE BOWEL REGIMEN, CONTINUE TO MONITOR
--- NOTE | 2017-06-02 21:58 | PCM.PROG ---
Progress Note - Progress Note for Day of Date: 06/01/17 - Subjective Subjective: WAS A DIRECT ADMISSION YESTERDAY FOR BRONCHOPNEUMONIA AND INFLUENZA. TODAY, SHE IS ALERT AND ORIENTED, SITTING UP IN BED ON MORNING ROUNDS. SHE CONTINUES WITH COMPLAINTS OF GENERALIZED WEAKNESS AND ABDOMINAL PAIN AND DISTENTION. ON EXAMINATION, HEART IS REGULAR IN RATE AND RHYTHM. BILATERAL LUNGS NOTED WITH DIMINISHED LUNG SOUNDS THROUGHOUT. SHE IS NOTED TO BE UTILIZING OXYGEN VIA NASAL CANNULA AT 2L/MIN. ABDOMEN CONTINUES TO BE DISTENDED AND NOTED WITH MILD, DIFFUSE ABDOMINAL PAIN TO PALPATION. NORMAL BOWEL SOUNDS NOTED IN ALL QUADRANTS. THERE IS NORMAL RANGE OF MOTION NOTED TO ALL EXTREMITIES. SHE REPORTS HAVING TWO BOWEL MOVEMENTS YESTERDAY. HER VITALS THIS MORNING ARE 98.3-75+20-94%-151/85. LABS WERE OBTAINED. TODAY, HER SODIUM HAS INCREASED 122 TO 123. OTHERWISE, SHE IS REMAINS HEMODYNAMICALLY STABLE. WE OBTAINED A KUB TODAY. IT REPORTED MODERATE TO LARGE AMOUNT OF BOTH LARGE AND SMALL BOWEL GAS. THE BOWEL DOES NOTE APPEAR TO BE DISTENDED. THIS COULD BE DUE TO AN ILEUS OR DEVELOPING OBSTRUCTION. SOFT TISSUE DENSITY IN THE ANATOMIC PELVIS, APPEARING TO DISPLACE BOWEL SUPERIORLY. THIS COULD BE A DISTENDED BLADDER, LARGE UTERUS, OR OTHER PELVIC MASS. FOLLOW-UP WITH PELVIC ULTRASOUND IS RECOMMENDED. WE WILL ORDER FOR A PELVIC ULTRASOUND TO BE OBTAINED IN THE MORNING. TODAY, WE WILL INCREASE SALT TABS TO ONE EVERY THREE HOURS. OTHERWISE, WE PLAN TO FOLLOW UP WITH AM LABS AND CHEST XRAY AND CONTINUE TO MONITOR PATIENT. - Past Medical Family Social History Past Med/Fam/Surg Hx: No changes since H&P Allergies: Allergies benzonatate [From Tessalon Perles] Allergy (Verified 05/24/17 16:50) meperidine [From Demerol] Allergy (Verified 05/24/17 16:50) Penicillins Allergy (Verified 05/24/17 17:37) rofecoxib [From Vioxx] Allergy (Verified 05/24/17 16:50) WATER PILLS Allergy (Uncoded 05/24/17 19:00) - Review of Systems ROS: No change since H&P - Vital Signs and I&O's Vital Signs: Temperature 98.2 F Pulse Rate [Left Brachial] 74 Pulse Rate [Right Brachial] 84 Pulse Rate 109 Respiratory Rate 20 Blood Pressure [Left Arm] 139/71 Blood Pressure [Right Arm] 121/58 O2 Sat by Pulse Oximetry 97 Intake and Output: Intake & Output 05/31/17 06/01/17 06/02/17 06/03/17 11:59 11:59 11:59 11:59 Intake Total 2275 3127 2709 1040 Balance 2275 0620 2709 1040 - Physical Exam Oriented: Normal Eyes: Normal. negative: Blurred Vision, Diplopia, Discharge, Pain, Redness, Photophobia, Other Ear: Normal. negative: Right, Left, Swelling, Ecchymosis, Hemotypanum, Abrasion , Laceration Nose: Other (NASAL AND CHEST CONGESTION ) Throat: Normal Respiratory: Right, Left, Generalized, Diminished Cardiovascular: Normal. negative: S3, S4, Murmur : Normal. negative: Dysuria, Hematuria, Frequency, Discharge, Testicular Pain , Bleeding, , Other Auscultation: Bowel Sounds: Normal. negative: Bruit, Absent, Increased, Decreased, High Pitched, Other Palpation: Normal Tenderness: Diffuse, Mild. negative: Rebound, Guarding, Rigidity Skin: Normal Musculoskeletal: Normal Psychiatric: Normal Mood Description: Calm Affect: Normal Speech Pattern: Clear, Appropriate - Laboratory and Diagnostics Result Diagrams: 06/02/17 04:17 06/02/17 04:17 Labs: 05/24/17 17:55 Blood Blood Culture - Final 05/24/17 18:00 Blood Blood Culture - Final 05/24/17 18:23 Sputum - Expectorated Sputum Sputum Culture - Final 05/24/17 18:23 Sputum - Expectorated Sputum - Final Laboratory WBC 9.9 X10^3/uL (3.6-10.0) 06/02/17 04:17 RBC 4.77 X10^6/uL (3.5-5.4) 06/02/17 04:17 Hgb 15.1 g/dL (12.0-16.0) 06/02/17 04:17 Hct 43.6 % (36.0-47.0) 06/02/17 04:17 MCV 91.6 fL (80.0-100.0) 06/02/17 04:17 MCH 31.7 pg (27.0-34.0) 06/02/17 04:17 MCHC 34.6 g/dL (33.0-35.0) 06/02/17 04:17 RDW 13.6 % (11.6-16.5) 06/02/17 04:17 Plt Count 204 X10^3/uL (150.0-450.0) 06/02/17 04:17 Plt Count Comment Adequate (ADEQUATE) 05/30/17 04:55 MPV 6.8 fL (7.4-11.0) L 06/02/17 04:17 Neut % 82.1 % (42.0-75.0) H 06/02/17 04:17 Lymph % 9.9 % (21.0-51.0) L 06/02/17 04:17 [place] % 7.3 % (0.0-13.0) 06/02/17 04:17 Eos % 0.3 % (0.9-2.9) L 06/02/17 04:17 Baso % 0.4 % (0.2-1.0) 06/02/17 04:17 Neut # 8.1 x10^3/uL (2.2-4.8) H 06/02/17 04:17 Lymph # 1.0 X10^3/uL (1.3-2.9) L 06/02/17 04:17 [place] # 0.7 x10^3/uL (0.3-0.8) 06/02/17 04:17 Eos # 0.0 x10^3/uL (0.0-0.2) 06/02/17 04:17 Baso # 0.0 X10^3/uL (0.0-0.1) 06/02/17 04:17 Absolute Nucleated RBC 0.0 /100WBC 06/02/17 04:17 Total Counted 100 05/30/17 04:55 Neutrophils % (Manual) 66 % (39-76) 05/30/17 04:55 Band Neutrophils % 2 % (0-10) 05/30/17 04:55 Lymphocytes % (Manual) 26 % (13-43) 05/30/17 04:55 Monocytes % (Manual) 6 % (4-9) 05/30/17 04:55 Plt Morphology Comment Normal (NORMAL) 05/30/17 04:55 RBC Morphology Normal (NORMAL) 05/30/17 04:55 Sample Site Lra 05/24/17 19:15 ABG pH 7.480 (7.35-7.45) H 05/24/17 19:15 ABG pCO2 40.0 mmHg (35.0-45.0) 05/24/17 19:15 ABG pO2 64.0 mmHg (80.0-100.0) L 05/24/17 19:15 ABG HCO3 29.8 mmol/L (22-26) H 05/24/17 19:15 ABG O2 Saturation 94.0 % (90-100) 05/24/17 19:15 ABG Base Excess 5.8 mmol/L (-2.0-2.0) H 05/24/17 19:15 Jake Test Pos 05/24/17 19:15 A-a Gradient 86.0 mmHg 05/24/17 19:15 FiO2 28.000 05/24/17 19:15 Blood Gas Comments Belkys well mm 05/24/17 19:15 Sodium 125 mmol/L (136-145) L* 06/02/17 04:17 Corrected Sodium TNP 06/02/17 04:17 Potassium 4.4 mmol/L (3.5-5.1) 06/02/17 04:17 Chloride 93 mmol/L (98-107) L 06/02/17 04:17 Carbon Dioxide 26.2 mmol/L (21-32) 06/02/17 04:17 BUN 11 mg/dL (7-18) 06/02/17 04:17 Creatinine 0.60 mg/dL (0.55-1.02) 06/02/17 04:17 Est GFR (MDRD) Af Amer > 60 (>60) 06/02/17 04:17 Est GFR (MDRD) Non-Af > 60 (>60) 06/02/17 04:17 Glucose 103 mg/dL (65-99) H 06/02/17 04:17 Calcium 8.1 mg/dL (8.5-10.1) L 06/02/17 04:17 Corrected Calcium 8.8 mg/dL (8.5-10.1) 06/02/17 04:17 Total Bilirubin 1.10 mg/dL (0.2-1.0) H 06/02/17 04:17 AST 21 Units/L (15-37) 06/02/17 04:17 ALT 26 Units/L (12-78) 06/02/17 04:17 Alkaline Phosphatase 44 Units/L (46-116) L 06/02/17 04:17 B-Natriuretic Peptide 239 pg/mL (0-79) H 05/24/17 18:00 Total Protein 6.1 g/dL (6.4-8.2) L 06/02/17 04:17 Albumin 3.1 g/dL (3.4-5.0) L 06/02/17 04:17 Globulin 3.0 g/dL (2.5-4.5) 06/02/17 04:17 Albumin/Globulin Ratio 1.0 Ratio (1.1-2.1) L 06/02/17 04:17 Specimen Type Catherized urine 06/02/17 17:46 Urine Color Yellow (YELLOW) 06/02/17 17:46 Urine Appearance Clear (CLEAR) 06/02/17 17:46 Urine pH 7.0 (5.0 - 8.0) 06/02/17 17:46 Ur Specific [place] 1.010 (1.000-1.030) 06/02/17 17:46 Urine Protein Negative (NEGATIVE) 06/02/17 17:46 Urine Glucose (UA) Negative (NEGATIVE) 06/02/17 17:46 Urine Ketones Negative (NEGATIVE) 06/02/17 17:46 Urine Occult Blood Negative (NEGATIVE) 06/02/17 17:46 Urine Nitrite Negative (NEGATIVE) 06/02/17 17:46 Urine Bilirubin Negative (NEGATIVE) 06/02/17 17:46 Urine Urobilinogen Normal (NORMAL) 06/02/17 17:46 Ur Leukocyte Esterase Negative (NEGATIVE) 06/02/17 17:46 Urine RBC None seen /HPF (NEGATIVE) 06/02/17 17:46 Urine WBC Rare /HPF (NEGATIVE) 06/02/17 17:46 Ur Squamous Epith Cells Few /HPF (NEGATIVE) 06/02/17 17:46 Amorphous Sediment Trace /HPF (NEGATIVE) 06/02/17 17:46 Urine Bacteria Negative /HPF (NEGATIVE) 06/02/17 17:46 Ur Culture Indicated? No/not indicated 06/02/17 17:46 Influenza Type A (PCR) Positive (NEGATIVE) A 05/24/17 18:56 Influenza Type B (PCR) Negative (NEGATIVE) 05/24/17 18:56 - Plan (1) Hyponatremia Status: Acute Plan: SALT TABS Q3H, NORMAL SALINE AT 100ML/HR, CONTINUE TO MONITOR (2) Generalized weakness Status: Acute Plan: CONTINUE PHYSICAL THERAPY, CONTINUE TO MONITOR (3) Constipation Status: Acute Qualifiers: Constipation type: slow transit constipation Qualified Code(s): K59.01 - Slow transit constipation Plan: COLACE 100MG BID, MILK OF MAGNESIA 15ML QID, MIRALAX DAILY, CONTINUE TO MONITOR (4) Bronchopneumonia Status: Resolved Plan: SUPPLEMENTAL OXYGEN, CONTINUE TO MONITOR (5) Influenza Status: Resolved Plan: CONTINUE TO MONITOR (6) Abdominal pain Status: Acute Qualifiers: Abdominal location: generalized Qualified Code(s): R10.84 - Generalized abdominal pain Plan: PELVIC ULTRASOUND IN AM, CONTINUE BOWEL REGIMEN, CONTINUE TO MONITOR
[2017-06-03] MEDS: NS 1000 ML 1,000 ML IV SCH (03:31)
[2017-06-03] MEDS: THERMOTABS PO SCH ×8 (03:31→22:15)
[2017-06-03] MEDS: MAALOX or MYLANTA PO SCH ×6 (03:32→20:26)
[2017-06-03 06:04] LABS: ALANINE AMINOTRANSFERASE 24 Units/L (12-78); ALBUMIN 2.7 g/dL (3.4-5.0); ALKALINE PHOSPHATASE 38 Units/L (46-116); ASPARTATE AMINO TRANSFERASE 20 Units/L (15-37); BLOOD UREA NITROGEN 7 mg/dL (7-18); CARBON DIOXIDE 27.1 mmol/L (21-32); CHLORIDE 100 mmol/L (98-107); CREATININE 0.51 mg/dL (0.55-1.02); SODIUM 134 mmol/L (136-145); TOTAL PROTEIN 5.4 g/dL (6.4-8.2); eGFR BLACK RACES > 60 (>60); eGFR NON BLACK RACES > 60 (>60)
[2017-06-03 06:15] LABS: BASOPHILS % (AUTO) 0.2 % (0.2-1.0); EOSINOPHILS % (AUTO) 0.5 % (0.9-2.9); HEMATOCRIT 38.3 % (36.0-47.0); HEMOGLOBIN 13.3 g/dL (12.0-16.0); LYMPHOCYTES % (AUTO) 14.2 % (21.0-51.0); MEAN CORPUSCULAR HEMOGLOBIN 31.5 pg (27.0-34.0); MEAN CORPUSCULAR HGB CONC 34.8 g/dL (33.0-35.0); MEAN CORPUSCULAR VOLUME 90.6 fL (80.0-100.0); MONOCYTES # (AUTO) 0.8 x10^3/uL (0.3-0.8); MONOCYTES % (AUTO) 10.5 % (0.0-13.0); NEUTROPHILS # (AUTO) 5.5 x10^3/uL (2.2-4.8); NEUTROPHILS % (AUTO) 74.6 % (42.0-75.0); PLATELET COUNT 175 X10^3/uL (150.0-450.0); RED BLOOD COUNT 4.23 X10^6/uL (3.5-5.4); RED CELL DISTRIBUTION WIDTH 13.4 % (11.6-16.5); WHITE BLOOD COUNT 7.3 X10^3/uL (3.6-10.0)
[2017-06-03] MEDS: LEVSIN/MAALOX/LIDOC VISC PO SCH ×4 (08:02→20:25)
[2017-06-03] MEDS: COLACE CAP 100 MG PO SCH ×2 (08:02→20:25)
[2017-06-03] MEDS: MEGACE PO SCH ×2 (08:02→20:25)
[2017-06-03] MEDS: MIRALAX POWDER (1 DOSE 17GM) PO SCH (08:03)
[2017-06-03] MEDS: PROTONIX INJ 40 MG VIAL IVP SCH ×2 (09:00→20:40)
[2017-06-03] MEDS: PEPCID 20 MG IV PREMIX* 20 MG/50 ML BAG IV SCH ×2 (09:00→20:23)
[2017-06-03] MEDS ORDERED: NS 100 ML IV + SPIKE MINIBAG* 100 ML IV ONE (11:29)
--- NOTE | 2017-06-03 12:40 | RAD ---
HISTORY: Bronchopneumonia, flu, coughing Study: Single view chest Comparison: 05/28/2017 Findings: No infiltrate, effusion or pneumothorax identified. The cardiac and mediastinal contours are within normal limits. The soft tissues are unremarkable. IMPRESSION: 1. No acute cardiopulmonary abnormality. Reported By:
--- NOTE | 2017-06-03 12:44 | CT ---
HISTORY: Bronchopneumonia. Follow-up for pelvic ultrasound. Study: Computed tomography of the abdomen pelvis: Multiple axial images were obtained throughout th e abdomen and pelvis before and after the infusion of intravascular contrast per standard protocol. Oral contrast was administered. Radiation dose reduction techniques utilized. Comparison: Pelvic ultrasound 06/02/2017 Findings: The lung bases demonstrate mild atelectatic change in both lung bases. No appreciable pleural fluid is noted. The 2-3 mm calcified granuloma is present in the posterior costophrenic angle on the right . The heart size is normal. A small to moderate size hiatal hernia is present. Examination of the uninfused images demonstrate the patient be status post cholecystectomy. No renal calculi are identified. There appear to be small extrarenal pelves. Moderate atherosclerotic chan es noted in the aorta. A Flynn catheter is present. The bladder is nondistended. Examination of the infused images demonstrate what most likely was a delay in acquisition of images. The liver shows no focal lesions. Patient is status post cholecystectomy. The common bile duct is mildly dilated at 13 mm. This extends into the pancreatic head. There is inhomogeneity of the pancr eatic head with possible cystic lesion measuring approximately 18 mm in maximum dimension. The remai nder of the pancreas is normal. No evidence of pancreatic duct dilatation is noted. The spleen is n ormal in its appearance. The kidneys demonstrate no enhancing lesions. Minimal focal cortical scarr ing is noted. A small extrarenal pelvis is noted on the left with minimal on the right. Mild athero sclerotic changes present in the abdominal aorta and iliac vessels. The uterus is present and lies s lightly to the left of midline. What appears to be the left ovary is normal. What appears to be the right ovary is enlarged, measuring approximately 8 by 7.2 by 8 cm. This has what appears to be fat fluid level P with the fat appears to be floating. This most likely is a large dermoid. I see no ap preciable soft tissue stranding around it. Delayed images show no evidence of ureteral dilatation. The stomach is nondistended. No appreciable contrast is noted within the stomach. The duodenum is n ondistended. The small bowel is nondistended. A portion of it is filled with contrast distally. Wh at appears to be the appendix is normal. The mass moderately compresses the distal small bowel. The re is contrast noted within the colon. The cecum is normal in its appearance. The transverse colon is mildly dilated centrally. The descending colon is of normal caliber. There are scattered diverti cula extending from the transverse colon and descending colon. Several diverticula extend from a mod erately redundant sigmoid colon which is moderately stool filled. I see no evidence of diverticuliti s. The region of the rectum has a small amount of stool within it. Several phleboliths are present in the anatomic pelvis. Examination of the bone windows demonstrate 2-3 mm spondylolisthesis of L4 on L5. Otherwise there is mild spondylosis. Minimal degenerative changes present within the hips. IMPRESSION: 1. Large right-sided pelvic mass as described above. This most likely is a dermoid. It appears to mildly impinge upon the distal small bowel without obstructing it. 2. Diverticulosis without evidence of diverticulitis. 3. Small to moderate-sized hiatal hernia. 4. 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 Fol low-up MRI may be of assistance. Reported By:
--- NOTE | 2017-06-03 15:32 | DR.CONSULT ---
Consult - Consultation for Day of: Date: 06/03/17 - Chief Complaint Chief Complaint: Patient referred for dysphagia. Patient with complaints of dysphagia and dyspesia. - Allergies Allergies/Adverse Reactions: Allergies Allergy/AdvReac Type Severity Reaction Status Date / Time benzonatate Allergy Verified 05/24/17 16:50 [From Tessalon Perles] meperidine [From Demerol] Allergy Verified 05/24/17 16:50 Penicillins Allergy Verified 05/24/17 17:37 rofecoxib [From Vioxx] Allergy Verified 05/24/17 16:50 WATER PILLS Allergy Uncoded 05/24/17 19:00 - History of Present Illness History of Present Illness: Patient is a 81yo female who was referred for dysphagia. Patient with complaints of dysphagia and dyspesia. She denies nausea , vomiting, abdominal pain, constipation, diarrhea, melena and hematochezia. She states that she has internal hemorrhoids. She states she has never had an EGD and cannot remember when her last colonoscopy. she states that she has been having trouble swallowing for several years but has gotten worse since she has been in the hospital. She states that it feels like everytime she eats something it gets stuck about at her sternum and causes pain. She has not been wanting to wating anything due to this. - Past Surgical History Surgical History: Cholecystectomy, Tonsillectomy - Family History Family Medical History: Diabetes Mellitus, Hypertension - Social History Does patient currently use any type of tobacco product: No Have you used tobacco products in the last 12 months: No Does any household member use tobacco: No Alcohol Use: None Drug Use: Prescription Drugs - Review of Systems Constitutional: No Symptoms Reported Eyes: No Symptoms Reported ENT: No Symptoms Reported Respiratory: No Symptoms Reported Cardiovascular: No Symptoms Reported Gastrointestinal: See HPI, Other (dysphagia). denies: Nausea, Vomiting, Abdominal Pain, Diarrhea, Constipation, Melena, Hematochezia Genitourinary: No Symptoms Reported Musculoskeletal: No Symptoms Reported Skin: No Symptoms Reported Neurological: No Symptoms Reported - Physical Exam Vital Signs: Temperature 98.2 F Pulse Rate [Left Brachial] 84 Pulse Rate [Right Brachial] 84 Pulse Rate 109 Respiratory Rate 20 Blood Pressure [Left Arm] 139/71 Blood Pressure [Right Arm] 125/68 O2 Sat by Pulse Oximetry 97 Oriented: Normal Eyes: Normal Ear: Normal Nose: Normal Throat: Normal Respiratory: Clear Throughout Cardiovascular: Normal : Normal Auscultation: Bowel Sounds: Normal Palpation: Normal Skin: Normal Musculoskeletal: Normal Psychiatric: Normal Mood Description: Calm Affect: Normal Speech Pattern: Clear - Plan Plan: Assessment. 1. Dysphagia r/o esophageal ulcer, esophageal adenocarcinoma , esophageal stricture. Plan. 1. EGD on monday. Plan reviewed with Dr. Townsend
[2017-06-03] MEDS: BUTT CREAM (COMPOUND) TOP PRN (23:13)
[2017-06-04] MEDS: THERMOTABS PO SCH ×9 (01:25→22:59)
[2017-06-04] MEDS: MAALOX or MYLANTA PO SCH ×7 (03:47→22:59)
[2017-06-04] MEDS: NS 1000 ML 1,000 ML IV SCH ×3 (04:14→15:58)
[2017-06-04 05:32] LABS: BASOPHILS % (AUTO) 0.3 % (0.2-1.0); EOSINOPHILS # (AUTO) 0.1 x10^3/uL (0.0-0.2); EOSINOPHILS % (AUTO) 0.8 % (0.9-2.9); HEMATOCRIT 38.7 % (36.0-47.0); HEMOGLOBIN 13.4 g/dL (12.0-16.0); LYMPHOCYTES # (AUTO) 0.8 X10^3/uL (1.3-2.9); LYMPHOCYTES % (AUTO) 12.6 % (21.0-51.0); MEAN CORPUSCULAR HEMOGLOBIN 31.9 pg (27.0-34.0); MEAN CORPUSCULAR HGB CONC 34.5 g/dL (33.0-35.0); MEAN CORPUSCULAR VOLUME 92.5 fL (80.0-100.0); MEAN PLATELET VOLUME 6.8 fL (7.4-11.0); MONOCYTES # (AUTO) 0.8 x10^3/uL (0.3-0.8); MONOCYTES % (AUTO) 11.9 % (0.0-13.0); NEUTROPHILS # (AUTO) 4.8 x10^3/uL (2.2-4.8); NEUTROPHILS % (AUTO) 74.4 % (42.0-75.0); PLATELET COUNT 162 X10^3/uL (150.0-450.0); RED BLOOD COUNT 4.19 X10^6/uL (3.5-5.4); RED CELL DISTRIBUTION WIDTH 13.5 % (11.6-16.5); WHITE BLOOD COUNT 6.5 X10^3/uL (3.6-10.0)
[2017-06-04 05:49] LABS: ALANINE AMINOTRANSFERASE 25 Units/L (12-78); ALBUMIN 2.8 g/dL (3.4-5.0); ALKALINE PHOSPHATASE 42 Units/L (46-116); ASPARTATE AMINO TRANSFERASE 21 Units/L (15-37); BLOOD UREA NITROGEN 5 mg/dL (7-18); CALCIUM 8.1 mg/dL (8.5-10.1); CARBON DIOXIDE 26.7 mmol/L (21-32); CHLORIDE 99 mmol/L (98-107); COR CA(FOR HYPOALB) 9.1 mg/dL (8.5-10.1); CREATININE 0.45 mg/dL (0.55-1.02); SODIUM 133 mmol/L (136-145); TOTAL PROTEIN 5.7 g/dL (6.4-8.2); eGFR BLACK RACES > 60 (>60); eGFR NON BLACK RACES > 60 (>60)
[2017-06-04] MEDS: PROTONIX INJ 40 MG VIAL IVP SCH ×2 (08:10→21:03)
[2017-06-04] MEDS: MEGACE PO SCH ×2 (08:10→21:03)
[2017-06-04] MEDS: COLACE CAP 100 MG PO SCH ×2 (08:10→21:02)
[2017-06-04] MEDS: PEPCID 20 MG IV PREMIX* 20 MG/50 ML BAG IV SCH ×2 (08:10→21:03)
[2017-06-04] MEDS: LEVSIN/MAALOX/LIDOC VISC PO SCH ×5 (08:10→21:03)
[2017-06-04] MEDS: MIRALAX POWDER (1 DOSE 17GM) PO SCH (08:10)
--- NOTE | 2017-06-04 22:17 | PCM.PROG ---
Progress Note - Progress Note for Day of Date: 06/02/17 - Subjective Subjective: WAS A DIRECT ADMISSION ON 05/24/17 FOR BRONCHOPNEUMONIA AND INFLUENZA. INFLUENZA AND BRONCHITIS HAVE RESOLVED. SHE IS NOW BEING TREATED FOR HYPONATREMIA, GENERALIZED WEAKNESS, AND ABDOMINAL PAIN. TODAY, SHE IS ALERT AND ORIENTED, SITTING UP IN BED ON MORNING ROUNDS. SHE CONTINUES WITH COMPLAINTS OF GENERALIZED WEAKNESS AND ABDOMINAL PAIN AND DISTENTION. ON EXAMINATION, HEART IS REGULAR IN RATE AND RHYTHM. BILATERAL LUNGS NOTED WITH DIMINISHED LUNG SOUNDS THROUGHOUT. SHE IS NOTED TO BE UTILIZING OXYGEN VIA NASAL CANNULA AT 2L/ MIN. ABDOMEN CONTINUES TO BE DISTENDED AND NOTED WITH MILD, DIFFUSE ABDOMINAL PAIN TO PALPATION. NORMAL BOWEL SOUNDS NOTED IN ALL QUADRANTS. THERE IS NORMAL RANGE OF MOTION NOTED TO ALL EXTREMITIES. SHE REPORTS HAVING TWO BOWEL MOVEMENTS YESTERDAY. HER VITALS THIS MORNING ARE 98.3-75+20-94%-151/85. LABS WERE OBTAINED. TODAY, HER SODIUM HAS INCREASED 122 TO 123. OTHERWISE, SHE IS REMAINS HEMODYNAMICALLY STABLE. WE OBTAINED A KUB TODAY. IT REPORTED MODERATE TO LARGE AMOUNT OF BOTH LARGE AND SMALL BOWEL GAS. THE BOWEL DOES NOTE APPEAR TO BE DISTENDED. THIS COULD BE DUE TO AN ILEUS OR DEVELOPING OBSTRUCTION. SOFT TISSUE DENSITY IN THE ANATOMIC PELVIS, APPEARING TO DISPLACE BOWEL SUPERIORLY. THIS COULD BE A DISTENDED BLADDER, LARGE UTERUS, OR OTHER PELVIC MASS. FOLLOW- UP WITH PELVIC ULTRASOUND IS RECOMMENDED. WE WILL ORDER FOR A PELVIC ULTRASOUND TO BE OBTAINED IN THE MORNING. TODAY, WE WILL INCREASE SALT TABS TO ONE EVERY THREE HOURS. OTHERWISE, WE PLAN TO FOLLOW UP WITH AM LABS AND CHEST XRAY AND CONTINUE TO MONITOR PATIENT. - Past Medical Family Social History Past Med/Fam/Surg Hx: No changes since H&P Allergies: Allergies benzonatate [From Tessalon Perles] Allergy (Verified 05/24/17 16:50) meperidine [From Demerol] Allergy (Verified 05/24/17 16:50) Penicillins Allergy (Verified 05/24/17 17:37) rofecoxib [From Vioxx] Allergy (Verified 05/24/17 16:50) WATER PILLS Allergy (Uncoded 05/24/17 19:00) - Review of Systems ROS: No change since H&P - Vital Signs and I&O's Vital Signs: Temperature 98.6 F Pulse Rate [Left Brachial] 80 Pulse Rate [Right Brachial] 84 Pulse Rate 109 Respiratory Rate 18 Blood Pressure [Left Arm] 123/60 Blood Pressure [Right Arm] 137/67 O2 Sat by Pulse Oximetry 95 Intake and Output: Intake & Output 06/02/17 06/03/17 06/04/17 06/05/17 11:59 11:59 11:59 11:59 Intake Total 2705 3710 1300 1345 Output Total 2232 0709 2100 Balance 5019 -9828 -6647 -471 - Physical Exam Oriented: Normal Eyes: Normal Ear: Normal Nose: Normal Throat: Normal Respiratory: Right, Left, Generalized, Diminished Cardiovascular: Normal : Normal Auscultation: Bowel Sounds: Normal Palpation: Normal Tenderness: Diffuse, Mild. negative: Rebound, Guarding, Rigidity Skin: Normal Musculoskeletal: Normal Psychiatric: Normal Mood Description: Calm Affect: Normal Speech Pattern: Clear, Appropriate - Laboratory and Diagnostics Result Diagrams: 06/04/17 04:10 06/04/17 04:10 Labs: 05/24/17 17:55 Blood Blood Culture - Final 05/24/17 18:00 Blood Blood Culture - Final 05/24/17 18:23 Sputum - Expectorated Sputum Sputum Culture - Final 05/24/17 18:23 Sputum - Expectorated Sputum - Final Laboratory WBC 6.5 X10^3/uL (3.6-10.0) 06/04/17 04:10 RBC 4.19 X10^6/uL (3.5-5.4) 06/04/17 04:10 Hgb 13.4 g/dL (12.0-16.0) 06/04/17 04:10 Hct 38.7 % (36.0-47.0) 06/04/17 04:10 MCV 92.5 fL (80.0-100.0) 06/04/17 04:10 MCH 31.9 pg (27.0-34.0) 06/04/17 04:10 MCHC 34.5 g/dL (33.0-35.0) 06/04/17 04:10 RDW 13.5 % (11.6-16.5) 06/04/17 04:10 Plt Count 162 X10^3/uL (150.0-450.0) 06/04/17 04:10 Plt Count Comment Adequate (ADEQUATE) 05/30/17 04:55 MPV 6.8 fL (7.4-11.0) L 06/04/17 04:10 Neut % 74.4 % (42.0-75.0) 06/04/17 04:10 Lymph % 12.6 % (21.0-51.0) L 06/04/17 04:10 [place] % 11.9 % (0.0-13.0) 06/04/17 04:10 Eos % 0.8 % (0.9-2.9) L 06/04/17 04:10 Baso % 0.3 % (0.2-1.0) 06/04/17 04:10 Neut # 4.8 x10^3/uL (2.2-4.8) 06/04/17 04:10 Lymph # 0.8 X10^3/uL (1.3-2.9) L 06/04/17 04:10 [place] # 0.8 x10^3/uL (0.3-0.8) 06/04/17 04:10 Eos # 0.1 x10^3/uL (0.0-0.2) 06/04/17 04:10 Baso # 0.0 X10^3/uL (0.0-0.1) 06/04/17 04:10 Absolute Nucleated RBC 0.1 /100WBC 06/04/17 04:10 Total Counted 100 05/30/17 04:55 Neutrophils % (Manual) 66 % (39-76) 05/30/17 04:55 Band Neutrophils % 2 % (0-10) 05/30/17 04:55 Lymphocytes % (Manual) 26 % (13-43) 05/30/17 04:55 Monocytes % (Manual) 6 % (4-9) 05/30/17 04:55 Plt Morphology Comment Normal (NORMAL) 05/30/17 04:55 RBC Morphology Normal (NORMAL) 05/30/17 04:55 Sample Site Lra 05/24/17 19:15 ABG pH 7.480 (7.35-7.45) H 05/24/17 19:15 ABG pCO2 40.0 mmHg (35.0-45.0) 05/24/17 19:15 ABG pO2 64.0 mmHg (80.0-100.0) L 05/24/17 19:15 ABG HCO3 29.8 mmol/L (22-26) H 05/24/17 19:15 ABG O2 Saturation 94.0 % (90-100) 05/24/17 19:15 ABG Base Excess 5.8 mmol/L (-2.0-2.0) H 05/24/17 19:15 Jake Test Pos 05/24/17 19:15 A-a Gradient 86.0 mmHg 05/24/17 19:15 FiO2 28.000 05/24/17 19:15 Blood Gas Comments Belkys well mm 05/24/17 19:15 Sodium 133 mmol/L (136-145) L 06/04/17 04:10 Corrected Sodium TNP 06/04/17 04:10 Potassium 3.8 mmol/L (3.5-5.1) 06/04/17 04:10 Chloride 99 mmol/L (98-107) 06/04/17 04:10 Carbon Dioxide 26.7 mmol/L (21-32) 06/04/17 04:10 BUN 5 mg/dL (7-18) L 06/04/17 04:10 Creatinine 0.45 mg/dL (0.55-1.02) L 06/04/17 04:10 Est GFR (MDRD) Af Amer > 60 (>60) 06/04/17 04:10 Est GFR (MDRD) Non-Af > 60 (>60) 06/04/17 04:10 Glucose 90 mg/dL (65-99) 06/04/17 04:10 Calcium 8.1 mg/dL (8.5-10.1) L 06/04/17 04:10 Corrected Calcium 9.1 mg/dL (8.5-10.1) 06/04/17 04:10 Total Bilirubin 0.90 mg/dL (0.2-1.0) 06/04/17 04:10 AST 21 Units/L (15-37) 06/04/17 04:10 ALT 25 Units/L (12-78) 06/04/17 04:10 Alkaline Phosphatase 42 Units/L (46-116) L 06/04/17 04:10 B-Natriuretic Peptide 239 pg/mL (0-79) H 05/24/17 18:00 Total Protein 5.7 g/dL (6.4-8.2) L 06/04/17 04:10 Albumin 2.8 g/dL (3.4-5.0) L 06/04/17 04:10 Globulin 2.9 g/dL (2.5-4.5) 06/04/17 04:10 Albumin/Globulin Ratio 1.0 Ratio (1.1-2.1) L 06/04/17 04:10 Specimen Type Catherized urine 06/02/17 17:46 Urine Color Yellow (YELLOW) 06/02/17 17:46 Urine Appearance Clear (CLEAR) 06/02/17 17:46 Urine pH 7.0 (5.0 - 8.0) 06/02/17 17:46 Ur Specific [place] 1.010 (1.000-1.030) 06/02/17 17:46 Urine Protein Negative (NEGATIVE) 06/02/17 17:46 Urine Glucose (UA) Negative (NEGATIVE) 06/02/17 17:46 Urine Ketones Negative (NEGATIVE) 06/02/17 17:46 Urine Occult Blood Negative (NEGATIVE) 06/02/17 17:46 Urine Nitrite Negative (NEGATIVE) 06/02/17 17:46 Urine Bilirubin Negative (NEGATIVE) 06/02/17 17:46 Urine Urobilinogen Normal (NORMAL) 06/02/17 17:46 Ur Leukocyte Esterase Negative (NEGATIVE) 06/02/17 17:46 Urine RBC None seen /HPF (NEGATIVE) 06/02/17 17:46 Urine WBC Rare /HPF (NEGATIVE) 06/02/17 17:46 Ur Squamous Epith Cells Few /HPF (NEGATIVE) 06/02/17 17:46 Amorphous Sediment Trace /HPF (NEGATIVE) 06/02/17 17:46 Urine Bacteria Negative /HPF (NEGATIVE) 06/02/17 17:46 Ur Culture Indicated? No/not indicated 06/02/17 17:46 Influenza Type A (PCR) Positive (NEGATIVE) A 05/24/17 18:56 Influenza Type B (PCR) Negative (NEGATIVE) 05/24/17 18:56 - Plan (1) Hyponatremia Status: Acute Plan: SALT TABS Q3H, NORMAL SALINE AT 100ML/HR, CONTINUE TO MONITOR (2) Generalized weakness Status: Acute Plan: CONTINUE PHYSICAL THERAPY, CONTINUE TO MONITOR (3) Constipation Status: Acute Qualifiers: Constipation type: slow transit constipation Qualified Code(s): K59.01 - Slow transit constipation Plan: COLACE 100MG BID, MILK OF MAGNESIA 15ML QID, MIRALAX DAILY, CONTINUE TO MONITOR (4) Bronchopneumonia Status: Resolved Plan: SUPPLEMENTAL OXYGEN, CONTINUE TO MONITOR (5) Influenza Status: Resolved Plan: CONTINUE TO MONITOR (6) Abdominal pain Status: Acute Qualifiers: Abdominal location: generalized Qualified Code(s): R10.84 - Generalized abdominal pain Plan: ABD/PELVIS CT WITH AND WITHOUT CONTRAST IN AM, CONTINUE BOWEL REGIMEN, CONTINUE TO MONITOR
[2017-06-04] MEDS: BUTT CREAM (COMPOUND) TOP PRN (22:59)
[2017-06-05] MEDS: THERMOTABS PO SCH ×8 (00:20→22:35)
[2017-06-05] MEDS: NS 1000 ML 1,000 ML IV SCH ×3 (01:40→18:10)
[2017-06-05] MEDS: MAALOX or MYLANTA PO SCH ×6 (02:03→22:36)
[2017-06-05 06:11] LABS: BASOPHILS % (AUTO) 0.6 % (0.2-1.0); EOSINOPHILS # (AUTO) 0.1 x10^3/uL (0.0-0.2); EOSINOPHILS % (AUTO) 1.5 % (0.9-2.9); HEMATOCRIT 38.4 % (36.0-47.0); HEMOGLOBIN 13.4 g/dL (12.0-16.0); LYMPHOCYTES # (AUTO) 0.9 X10^3/uL (1.3-2.9); LYMPHOCYTES % (AUTO) 14.7 % (21.0-51.0); MEAN CORPUSCULAR HEMOGLOBIN 31.9 pg (27.0-34.0); MEAN CORPUSCULAR VOLUME 91.1 fL (80.0-100.0); MONOCYTES % (AUTO) 16.1 % (0.0-13.0); NEUTROPHILS % (AUTO) 67.1 % (42.0-75.0); PLATELET COUNT 149 X10^3/uL (150.0-450.0); RED BLOOD COUNT 4.21 X10^6/uL (3.5-5.4); RED CELL DISTRIBUTION WIDTH 13.7 % (11.6-16.5)
[2017-06-05 07:11] LABS: ALANINE AMINOTRANSFERASE 25 Units/L (12-78); ALBUMIN 2.7 g/dL (3.4-5.0); ALKALINE PHOSPHATASE 43 Units/L (46-116); ASPARTATE AMINO TRANSFERASE 20 Units/L (15-37); BLOOD UREA NITROGEN 4 mg/dL (7-18); CALCIUM 8.1 mg/dL (8.5-10.1); CARBON DIOXIDE 22.8 mmol/L (21-32); CHLORIDE 99 mmol/L (98-107); COR CA(FOR HYPOALB) 9.1 mg/dL (8.5-10.1); CREATININE 0.48 mg/dL (0.55-1.02); SODIUM 133 mmol/L (136-145); TOTAL PROTEIN 5.6 g/dL (6.4-8.2); eGFR BLACK RACES > 60 (>60); eGFR NON BLACK RACES > 60 (>60)
[2017-06-05] MEDS: COLACE CAP 100 MG PO SCH ×2 (09:12→20:20)
[2017-06-05] MEDS: LEVSIN/MAALOX/LIDOC VISC PO SCH ×5 (09:13→20:11)
[2017-06-05] MEDS: PROTONIX INJ 40 MG VIAL IVP SCH ×2 (09:14→20:19)
[2017-06-05] MEDS: MIRALAX POWDER (1 DOSE 17GM) PO SCH (09:14)
[2017-06-05] MEDS: PEPCID 20 MG IV PREMIX* 20 MG/50 ML BAG IV SCH ×2 (09:14→20:20)
[2017-06-05] MEDS: MEGACE PO SCH ×2 (09:18→20:19)
--- NOTE | 2017-06-05 12:59 | PCM.PROG ---
Progress Note - Progress Note for Day of Date: 06/03/17 - Subjective Subjective: IS NOW BEING TREATED FOR HYPONATREMIA, GENERALIZED WEAKNESS , AND ABDOMINAL PAIN. TODAY, SHE IS ALERT AND ORIENTED, SITTING UP IN BED ON MORNING ROUNDS. SHE CONTINUES WITH COMPLAINTS OF GENERALIZED WEAKNESS AND ABDOMINAL PAIN. ON EXAMINATION, HEART IS REGULAR IN RATE AND RHYTHM. BILATERAL LUNGS AER NOTED TO BE CLEAR TO AUSCULTATION. ABDOMEN CONTINUES TO BE DISTENDED AND NOTED WITH MILD, DIFFUSE ABDOMINAL PAIN TO PALPATION. NORMAL BOWEL SOUNDS NOTED IN ALL QUADRANTS. THERE IS NORMAL RANGE OF MOTION NOTED TO ALL EXTREMITIES. SHE REPORTS HAVING TWO ADDITIONAL BOWEL MOVEMENTS YESTERDAY. HER VITALS THIS MORNING ARE 97.9-69-20-95%-139/63. LABS WERE OBTAINED. TODAY, HER SODIUM HAS INCREASED TO 134. OTHERWISE, SHE IS REMAINS HEMODYNAMICALLY STABLE. WE ORDERED FOR AN ABD/PELVIS CT WITH AND WITHOUT CONTRAST TO BE OBTAINED TODAY. SHE HAS NOT HAD CT AT THIS TIME. TODAY, WE WILL AWAIT RESULTS OF CT SCAN AND CONTINUE WITH CURRENT PLAN OF CARE. WE WILL CONTINUE TO HAVE PHYSICAL THERAPY AMBULATE AND EXERCISE PATIENT. OTHERWISE, WE WILL FOLLOW UP WITH AM LABS AND CONTINUE TO MONTIOR PATIENT. - Past Medical Family Social History Past Med/Fam/Surg Hx: No changes since H&P Allergies: Allergies benzonatate [From Tessalon Perles] Allergy (Verified 05/24/17 16:50) meperidine [From Demerol] Allergy (Verified 05/24/17 16:50) Penicillins Allergy (Verified 05/24/17 17:37) rofecoxib [From Vioxx] Allergy (Verified 05/24/17 16:50) WATER PILLS Allergy (Uncoded 05/24/17 19:00) - Review of Systems ROS: No change since H&P - Vital Signs and I&O's Vital Signs: Temperature 97.6 F Pulse Rate [Left Brachial] 108 Pulse Rate [Right Brachial] 84 Pulse Rate 109 Respiratory Rate 20 Blood Pressure [Left Arm] 122/86 Blood Pressure [Right Arm] 137/67 O2 Sat by Pulse Oximetry 108 Intake and Output: Intake & Output 06/03/17 06/04/17 06/05/17 06/06/17 11:59 11:59 11:59 11:59 Intake Total 1975 2750 3682 Output Total 8782 7676 4300 Balance -3485 -2700 -618 - Physical Exam Oriented: Normal Eyes: Normal Ear: Normal Nose: Normal Throat: Normal Respiratory: Normal Cardiovascular: Normal : Normal Auscultation: Bowel Sounds: Normal Tenderness: Diffuse, Mild. negative: Rebound, Guarding, Rigidity Skin: Normal Musculoskeletal: Normal Psychiatric: Normal Mood Description: Calm Affect: Normal Speech Pattern: Clear, Appropriate - Laboratory and Diagnostics Result Diagrams: 06/05/17 04:25 06/05/17 04:25 Labs: 05/24/17 17:55 Blood Blood Culture - Final 05/24/17 18:00 Blood Blood Culture - Final 05/24/17 18:23 Sputum - Expectorated Sputum Sputum Culture - Final 05/24/17 18:23 Sputum - Expectorated Sputum - Final Laboratory WBC 6.0 X10^3/uL (3.6-10.0) 06/05/17 04:25 RBC 4.21 X10^6/uL (3.5-5.4) 06/05/17 04:25 Hgb 13.4 g/dL (12.0-16.0) 06/05/17 04:25 Hct 38.4 % (36.0-47.0) 06/05/17 04:25 MCV 91.1 fL (80.0-100.0) 06/05/17 04:25 MCH 31.9 pg (27.0-34.0) 06/05/17 04:25 MCHC 35.0 g/dL (33.0-35.0) 06/05/17 04:25 RDW 13.7 % (11.6-16.5) 06/05/17 04:25 Plt Count 149 X10^3/uL (150.0-450.0) L 06/05/17 04:25 Plt Count Comment Adequate (ADEQUATE) 05/30/17 04:55 MPV 7.0 fL (7.4-11.0) L 06/05/17 04:25 Neut % 67.1 % (42.0-75.0) 06/05/17 04:25 Lymph % 14.7 % (21.0-51.0) L 06/05/17 04:25 [place] % 16.1 % (0.0-13.0) H 06/05/17 04:25 Eos % 1.5 % (0.9-2.9) 06/05/17 04:25 Baso % 0.6 % (0.2-1.0) 06/05/17 04:25 Neut # 4.0 x10^3/uL (2.2-4.8) 06/05/17 04:25 Lymph # 0.9 X10^3/uL (1.3-2.9) L 06/05/17 04:25 [place] # 1.0 x10^3/uL (0.3-0.8) H 06/05/17 04:25 Eos # 0.1 x10^3/uL (0.0-0.2) 06/05/17 04:25 Baso # 0.0 X10^3/uL (0.0-0.1) 06/05/17 04:25 Absolute Nucleated RBC 0.1 /100WBC 06/05/17 04:25 Total Counted 100 05/30/17 04:55 Neutrophils % (Manual) 66 % (39-76) 05/30/17 04:55 Band Neutrophils % 2 % (0-10) 05/30/17 04:55 Lymphocytes % (Manual) 26 % (13-43) 05/30/17 04:55 Monocytes % (Manual) 6 % (4-9) 05/30/17 04:55 Plt Morphology Comment Normal (NORMAL) 05/30/17 04:55 RBC Morphology Normal (NORMAL) 05/30/17 04:55 Sample Site Lra 05/24/17 19:15 ABG pH 7.480 (7.35-7.45) H 05/24/17 19:15 ABG pCO2 40.0 mmHg (35.0-45.0) 05/24/17 19:15 ABG pO2 64.0 mmHg (80.0-100.0) L 05/24/17 19:15 ABG HCO3 29.8 mmol/L (22-26) H 05/24/17 19:15 ABG O2 Saturation 94.0 % (90-100) 05/24/17 19:15 ABG Base Excess 5.8 mmol/L (-2.0-2.0) H 05/24/17 19:15 Jake Test Pos 05/24/17 19:15 A-a Gradient 86.0 mmHg 05/24/17 19:15 FiO2 28.000 05/24/17 19:15 Blood Gas Comments Belkys well mm 05/24/17 19:15 Sodium 133 mmol/L (136-145) L 06/05/17 04:25 Corrected Sodium TNP 06/05/17 04:25 Potassium 3.7 mmol/L (3.5-5.1) 06/05/17 04:25 Chloride 99 mmol/L (98-107) 06/05/17 04:25 Carbon Dioxide 22.8 mmol/L (21-32) 06/05/17 04:25 BUN 4 mg/dL (7-18) L 06/05/17 04:25 Creatinine 0.48 mg/dL (0.55-1.02) L 06/05/17 04:25 Est GFR (MDRD) Af Amer > 60 (>60) 06/05/17 04:25 Est GFR (MDRD) Non-Af > 60 (>60) 06/05/17 04:25 Glucose 100 mg/dL (65-99) H 06/05/17 04:25 Calcium 8.1 mg/dL (8.5-10.1) L 06/05/17 04:25 Corrected Calcium 9.1 mg/dL (8.5-10.1) 06/05/17 04:25 Total Bilirubin 0.70 mg/dL (0.2-1.0) 06/05/17 04:25 AST 20 Units/L (15-37) 06/05/17 04:25 ALT 25 Units/L (12-78) 06/05/17 04:25 Alkaline Phosphatase 43 Units/L (46-116) L 06/05/17 04:25 B-Natriuretic Peptide 239 pg/mL (0-79) H 05/24/17 18:00 Total Protein 5.6 g/dL (6.4-8.2) L 06/05/17 04:25 Albumin 2.7 g/dL (3.4-5.0) L 06/05/17 04:25 Globulin 2.9 g/dL (2.5-4.5) 06/05/17 04:25 Albumin/Globulin Ratio 0.9 Ratio (1.1-2.1) L 06/05/17 04:25 Specimen Type Catherized urine 06/02/17 17:46 Urine Color Yellow (YELLOW) 06/02/17 17:46 Urine Appearance Clear (CLEAR) 06/02/17 17:46 Urine pH 7.0 (5.0 - 8.0) 06/02/17 17:46 Ur Specific [place] 1.010 (1.000-1.030) 06/02/17 17:46 Urine Protein Negative (NEGATIVE) 06/02/17 17:46 Urine Glucose (UA) Negative (NEGATIVE) 06/02/17 17:46 Urine Ketones Negative (NEGATIVE) 06/02/17 17:46 Urine Occult Blood Negative (NEGATIVE) 06/02/17 17:46 Urine Nitrite Negative (NEGATIVE) 06/02/17 17:46 Urine Bilirubin Negative (NEGATIVE) 06/02/17 17:46 Urine Urobilinogen Normal (NORMAL) 06/02/17 17:46 Ur Leukocyte Esterase Negative (NEGATIVE) 06/02/17 17:46 Urine RBC None seen /HPF (NEGATIVE) 06/02/17 17:46 Urine WBC Rare /HPF (NEGATIVE) 06/02/17 17:46 Ur Squamous Epith Cells Few /HPF (NEGATIVE) 06/02/17 17:46 Amorphous Sediment Trace /HPF (NEGATIVE) 06/02/17 17:46 Urine Bacteria Negative /HPF (NEGATIVE) 06/02/17 17:46 Ur Culture Indicated? No/not indicated 06/02/17 17:46 Influenza Type A (PCR) Positive (NEGATIVE) A 05/24/17 18:56 Influenza Type B (PCR) Negative (NEGATIVE) 05/24/17 18:56 - Plan (1) Hyponatremia Status: Acute Plan: SALT TABS Q3H, NORMAL SALINE AT 100ML/HR, CONTINUE TO MONITOR (2) Generalized weakness Status: Acute Plan: CONTINUE PHYSICAL THERAPY, CONTINUE TO MONITOR (3) Abdominal pain Status: Acute Qualifiers: Abdominal location: generalized Qualified Code(s): R10.84 - Generalized abdominal pain Plan: ABD/PELVIS CT WITH AND WITHOUT CONTRAST TODAY, CONTINUE BOWEL REGIMEN, CONTINUE TO MONITOR (4) Constipation Status: Resolved Qualifiers: Constipation type: slow transit constipation Qualified Code(s): K59.01 - Slow transit constipation Plan: COLACE 100MG BID, MILK OF MAGNESIA 15ML QID, MIRALAX DAILY, CONTINUE TO MONITOR (5) Bronchopneumonia Status: Resolved Plan: SUPPLEMENTAL OXYGEN, CONTINUE TO MONITOR (6) Influenza Status: Resolved Plan: CONTINUE TO MONITOR
--- NOTE | 2017-06-05 13:04 | PCM.PROG ---
Progress Note - Progress Note for Day of Date: 06/04/17 - Subjective Subjective: IS NOW BEING TREATED FOR HYPONATREMIA, GENERALIZED WEAKNESS , AND ABDOMINAL PAIN. TODAY, SHE IS ALERT AND ORIENTED, SITTING UP IN BED ON MORNING ROUNDS. SHE CONTINUES WITH COMPLAINTS OF GENERALIZED WEAKNESS AND PERSISTENT ABDOMINAL PAIN. ON EXAMINATION, HEART IS REGULAR IN RATE AND RHYTHM. BILATERAL LUNGS AER NOTED TO BE CLEAR TO AUSCULTATION. ABDOMEN CONTINUES TO BE DISTENDED AND NOTED WITH MILD, DIFFUSE ABDOMINAL PAIN TO PALPATION. NORMAL BOWEL SOUNDS NOTED IN ALL QUADRANTS. THERE IS NORMAL RANGE OF MOTION NOTED TO ALL EXTREMITIES. SHE REPORTS HAVING ONE BOWEL MOVEMENT YESTERDAY. HER VITALS THIS MORNING ARE 98.8-73-18-93%-140/65. LABS WERE OBTAINED. SHE REMAINS HEMODYNAMICALLY STABLE. AN ABD/PELVIS CT WITH AND WITHOUT CONTRAST WAS OBTAINED YESTERDAY. IT REPORTED IT REPORTED A LARGE RIGHT SIDED PELVIC MASS, MOST LIKELY A DERMOID. IT APPEARS TO MILDLY IMPINGE UPON THE DISTAL SMALL BOWEL WITHOUT OBSTRUCTING IT. DIVERTICULOSIS WITHOUT EVIDENCE OF DIVERTICULITIS. SMALL TO MODERATE SIZED HIATAL HERNIA. 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 TODAY, WE WILL ORDER A CA 125 AND CONSULT WITH , OB-LEGAL RECORDS MANAGER. WE WILL OBTAIN A CAROTID US AND AN ECHOCARDIOGRAM TO CLEAR PATIENT IN THE EVENT THAT SURGICAL INTERVENTION IS NECESSARY. WE WILL CONTINUE TO HAVE PHYSICAL THERAPY AMBULATE AND EXERCISE PATIENT. OTHERWISE, WE WILL FOLLOW UP WITH AM LABS AND CONTINUE TO MONTIOR PATIENT. - Past Medical Family Social History Past Med/Fam/Surg Hx: No changes since H&P Allergies: Allergies benzonatate [From Tessalon Perles] Allergy (Verified 05/24/17 16:50) meperidine [From Demerol] Allergy (Verified 05/24/17 16:50) Penicillins Allergy (Verified 05/24/17 17:37) rofecoxib [From Vioxx] Allergy (Verified 05/24/17 16:50) WATER PILLS Allergy (Uncoded 05/24/17 19:00) - Review of Systems ROS: No change since H&P - Vital Signs and I&O's Vital Signs: Temperature 97.6 F Pulse Rate [Left Brachial] 108 Pulse Rate [Right Brachial] 84 Pulse Rate 109 Respiratory Rate 20 Blood Pressure [Left Arm] 122/86 Blood Pressure [Right Arm] 137/67 O2 Sat by Pulse Oximetry 108 Intake and Output: Intake & Output 06/03/17 06/04/17 06/05/17 06/06/17 11:59 11:59 11:59 11:59 Intake Total 1974 2750 3682 Output Total 4816 [address] [facility] -[phone] -[phone] - Physical Exam Oriented: Normal Eyes: Normal Ear: Normal Nose: Normal Throat: Normal Respiratory: Normal Cardiovascular: Normal : Normal Auscultation: Bowel Sounds: Normal Palpation: Normal Tenderness: Diffuse, Mild. negative: Rebound, Guarding, Rigidity Skin: Normal Musculoskeletal: Normal Psychiatric: Normal Mood Description: Calm Affect: Normal Speech Pattern: Clear, Appropriate - Laboratory and Diagnostics Result Diagrams: 06/05/17 04:25 06/05/17 04:25 Labs: 05/24/17 17:55 Blood Blood Culture - Final 05/24/17 18:00 Blood Blood Culture - Final 05/24/17 18:23 Sputum - Expectorated Sputum Sputum Culture - Final 05/24/17 18:23 Sputum - Expectorated Sputum - Final Laboratory WBC 6.0 X10^3/uL (3.6-10.0) 06/05/17 04:25 RBC 4.21 X10^6/uL (3.5-5.4) 06/05/17 04:25 Hgb 13.4 g/dL (12.0-16.0) 06/05/17 04:25 Hct 38.4 % (36.0-47.0) 06/05/17 04:25 MCV 91.1 fL (80.0-100.0) 06/05/17 04:25 MCH 31.9 pg (27.0-34.0) 06/05/17 04:25 MCHC 35.0 g/dL (33.0-35.0) 06/05/17 04:25 RDW 13.7 % (11.6-16.5) 06/05/17 04:25 Plt Count 149 X10^3/uL (150.0-450.0) L 06/05/17 04:25 Plt Count Comment Adequate (ADEQUATE) 05/30/17 04:55 MPV 7.0 fL (7.4-11.0) L 06/05/17 04:25 Neut % 67.1 % (42.0-75.0) 06/05/17 04:25 Lymph % 14.7 % (21.0-51.0) L 06/05/17 04:25 [place] % 16.1 % (0.0-13.0) H 06/05/17 04:25 Eos % 1.5 % (0.9-2.9) 06/05/17 04:25 Baso % 0.6 % (0.2-1.0) 06/05/17 04:25 Neut # 4.0 x10^3/uL (2.2-4.8) 06/05/17 04:25 Lymph # 0.9 X10^3/uL (1.3-2.9) L 06/05/17 04:25 [place] # 1.0 x10^3/uL (0.3-0.8) H 06/05/17 04:25 Eos # 0.1 x10^3/uL (0.0-0.2) 06/05/17 04:25 Baso # 0.0 X10^3/uL (0.0-0.1) 06/05/17 04:25 Absolute Nucleated RBC 0.1 /100WBC 06/05/17 04:25 Total Counted 100 05/30/17 04:55 Neutrophils % (Manual) 66 % (39-76) 05/30/17 04:55 Band Neutrophils % 2 % (0-10) 05/30/17 04:55 Lymphocytes % (Manual) 26 % (13-43) 05/30/17 04:55 Monocytes % (Manual) 6 % (4-9) 05/30/17 04:55 Plt Morphology Comment Normal (NORMAL) 05/30/17 04:55 RBC Morphology Normal (NORMAL) 05/30/17 04:55 Sample Site Lra 05/24/17 19:15 ABG pH 7.480 (7.35-7.45) H 05/24/17 19:15 ABG pCO2 40.0 mmHg (35.0-45.0) 05/24/17 19:15 ABG pO2 64.0 mmHg (80.0-100.0) L 05/24/17 19:15 ABG HCO3 29.8 mmol/L (22-26) H 05/24/17 19:15 ABG O2 Saturation 94.0 % (90-100) 05/24/17 19:15 ABG Base Excess 5.8 mmol/L (-2.0-2.0) H 05/24/17 19:15 Jake Test Pos 05/24/17 19:15 A-a Gradient 86.0 mmHg 05/24/17 19:15 FiO2 28.000 05/24/17 19:15 Blood Gas Comments Belkys well mm 05/24/17 19:15 Sodium 133 mmol/L (136-145) L 06/05/17 04:25 Corrected Sodium TNP 06/05/17 04:25 Potassium 3.7 mmol/L (3.5-5.1) 06/05/17 04:25 Chloride 99 mmol/L (98-107) 06/05/17 04:25 Carbon Dioxide 22.8 mmol/L (21-32) 06/05/17 04:25 BUN 4 mg/dL (7-18) L 06/05/17 04:25 Creatinine 0.48 mg/dL (0.55-1.02) L 06/05/17 04:25 Est GFR (MDRD) Af Amer > 60 (>60) 06/05/17 04:25 Est GFR (MDRD) Non-Af > 60 (>60) 06/05/17 04:25 Glucose 100 mg/dL (65-99) H 06/05/17 04:25 Calcium 8.1 mg/dL (8.5-10.1) L 06/05/17 04:25 Corrected Calcium 9.1 mg/dL (8.5-10.1) 06/05/17 04:25 Total Bilirubin 0.70 mg/dL (0.2-1.0) 06/05/17 04:25 AST 20 Units/L (15-37) 06/05/17 04:25 ALT 25 Units/L (12-78) 06/05/17 04:25 Alkaline Phosphatase 43 Units/L (46-116) L 06/05/17 04:25 B-Natriuretic Peptide 239 pg/mL (0-79) H 05/24/17 18:00 Total Protein 5.6 g/dL (6.4-8.2) L 06/05/17 04:25 Albumin 2.7 g/dL (3.4-5.0) L 06/05/17 04:25 Globulin 2.9 g/dL (2.5-4.5) 06/05/17 04:25 Albumin/Globulin Ratio 0.9 Ratio (1.1-2.1) L 06/05/17 04:25 Specimen Type Catherized urine 06/02/17 17:46 Urine Color Yellow (YELLOW) 06/02/17 17:46 Urine Appearance Clear (CLEAR) 06/02/17 17:46 Urine pH 7.0 (5.0 - 8.0) 06/02/17 17:46 Ur Specific [place] 1.010 (1.000-1.030) 06/02/17 17:46 Urine Protein Negative (NEGATIVE) 06/02/17 17:46 Urine Glucose (UA) Negative (NEGATIVE) 06/02/17 17:46 Urine Ketones Negative (NEGATIVE) 06/02/17 17:46 Urine Occult Blood Negative (NEGATIVE) 06/02/17 17:46 Urine Nitrite Negative (NEGATIVE) 06/02/17 17:46 Urine Bilirubin Negative (NEGATIVE) 06/02/17 17:46 Urine Urobilinogen Normal (NORMAL) 06/02/17 17:46 Ur Leukocyte Esterase Negative (NEGATIVE) 06/02/17 17:46 Urine RBC None seen /HPF (NEGATIVE) 06/02/17 17:46 Urine WBC Rare /HPF (NEGATIVE) 06/02/17 17:46 Ur Squamous Epith Cells Few /HPF (NEGATIVE) 06/02/17 17:46 Amorphous Sediment Trace /HPF (NEGATIVE) 06/02/17 17:46 Urine Bacteria Negative /HPF (NEGATIVE) 06/02/17 17:46 Ur Culture Indicated? 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
[2017-06-05] MEDS ORDERED: DULCOLAX SUPPOSITORY 10 MG RECTAL SCH (15:00)
--- NOTE | 2017-06-05 16:02 | VAS ---
HISTORY: Surgical clearance, mitral valve prolapse Study: Carotid Doppler ultrasound Comparison: None Technique: Multiple samuel scale and color flow Doppler images of the right and left carotid arterial s ystem were obtained. The vertebral arterial system was evaluated as well. Findings: Normal color flow Doppler is seen throughout the right and left carotid arterial system. No hemodyna mically significant stenosis is seen based on velocity criteria. The peak systolic velocity in the r ight ICA is 71 centimeters/second and in the left ICA is 54 centimeters/second. The right and left IC A/CCA ratios are 1.1 and 0.8, respectively. The right and left vertebral arteries demonstrate antegra de flow. IMPRESSION: 1. No hemodynamically significant stenosis. Reported By:
[2017-06-06] MEDS: THERMOTABS PO SCH ×8 (00:23→23:35)
[2017-06-06] MEDS: NS 1000 ML 1,000 ML IV SCH ×2 (00:23→20:26)
[2017-06-06] MEDS: MAALOX or MYLANTA PO SCH ×5 (02:20→23:41)
[2017-06-06 05:28] LABS: BASOPHILS % (AUTO) 0.6 % (0.2-1.0); EOSINOPHILS # (AUTO) 0.1 x10^3/uL (0.0-0.2); EOSINOPHILS % (AUTO) 1.3 % (0.9-2.9); HEMATOCRIT 37.6 % (36.0-47.0); HEMOGLOBIN 13.1 g/dL (12.0-16.0); LYMPHOCYTES # (AUTO) 0.9 X10^3/uL (1.3-2.9); LYMPHOCYTES % (AUTO) 15.1 % (21.0-51.0); MEAN CORPUSCULAR HEMOGLOBIN 31.9 pg (27.0-34.0); MEAN CORPUSCULAR HGB CONC 34.7 g/dL (33.0-35.0); MEAN CORPUSCULAR VOLUME 91.8 fL (80.0-100.0); MEAN PLATELET VOLUME 6.8 fL (7.4-11.0); MONOCYTES # (AUTO) 0.8 x10^3/uL (0.3-0.8); MONOCYTES % (AUTO) 14.4 % (0.0-13.0); NEUTROPHILS % (AUTO) 68.6 % (42.0-75.0); PLATELET COUNT 140 X10^3/uL (150.0-450.0); RED CELL DISTRIBUTION WIDTH 13.6 % (11.6-16.5); WHITE BLOOD COUNT 5.8 X10^3/uL (3.6-10.0)
[2017-06-06 05:36] LABS: ALANINE AMINOTRANSFERASE 22 Units/L (12-78); ALBUMIN 2.6 g/dL (3.4-5.0); ALKALINE PHOSPHATASE 44 Units/L (46-116); ASPARTATE AMINO TRANSFERASE 17 Units/L (15-37); BLOOD UREA NITROGEN 6 mg/dL (7-18); CARBON DIOXIDE 26.2 mmol/L (21-32); CHLORIDE 101 mmol/L (98-107); COR CA(FOR HYPOALB) 9.1 mg/dL (8.5-10.1); CREATININE 0.48 mg/dL (0.55-1.02); SODIUM 133 mmol/L (136-145); TOTAL PROTEIN 5.4 g/dL (6.4-8.2); eGFR BLACK RACES > 60 (>60); eGFR NON BLACK RACES > 60 (>60)
[2017-06-06] MEDS: PEPCID 20 MG IV PREMIX* 20 MG/50 ML BAG IV SCH ×2 (09:39→20:37)
[2017-06-06] MEDS: PROTONIX INJ 40 MG VIAL IVP SCH ×2 (09:40→20:29)
[2017-06-06] MEDS: COLACE CAP 100 MG PO SCH ×2 (10:14→20:31)
[2017-06-06] MEDS: MIRALAX POWDER (1 DOSE 17GM) PO SCH (10:15)
[2017-06-06] MEDS: LEVSIN/MAALOX/LIDOC VISC PO SCH ×4 (10:15→21:36)
[2017-06-06] MEDS: MEGACE PO SCH ×2 (10:15→20:30)
[2017-06-06] MEDS: NS 1000 ML 1,000 ML ONE ×2 (13:16→14:20)
[2017-06-06] MEDS ORDERED: DIPRIVAN VIAL 20 ML ONE (14:31)
--- NOTE | 2017-06-06 17:50 | PCM.PROG ---
Progress Note - Progress Note for Day of Date: 06/05/17 - Subjective Subjective: IS NOW BEING TREATED FOR HYPONATREMIA, GENERALIZED WEAKNESS , AND ABDOMINAL PAIN. TODAY, SHE IS ALERT AND ORIENTED, SITTING UP IN BED ON MORNING ROUNDS. SHE CONTINUES WITH COMPLAINTS OF GENERALIZED WEAKNESS AND PERSISTENT ABDOMINAL PAIN. ON EXAMINATION, HEART IS REGULAR IN RATE AND RHYTHM. BILATERAL LUNGS AER NOTED TO BE CLEAR TO AUSCULTATION. ABDOMEN CONTINUES TO BE DISTENDED AND NOTED WITH MILD, DIFFUSE ABDOMINAL PAIN TO PALPATION. NORMAL BOWEL SOUNDS NOTED IN ALL QUADRANTS. THERE IS NORMAL RANGE OF MOTION NOTED TO ALL EXTREMITIES. HER VITALS THIS MORNING ARE 97.6-108-20-96%-122/86. LABS WERE OBTAINED. SHE REMAINS HEMODYNAMICALLY STABLE. CONSULTED WITH PATIENT YESTERDAY AND RECOMMENDED THAT WE REFER PATIENT TO DR.JAMES AZAR, [facility] IN [place], [place] AFTER DISCHARGE FOR FOLLOW UP ON PELVIC MASS. WE OBTAINED A CAROTID DOPPLER TO CLEAR PATIENT FOR SURGERY. IT REPORTED NO HEMODYNAMICALLY SIGNIFICANT STENOSIS. ECHOCARDIOGRAM NORMAL. PATIENT IS MEDICALLY CLEAR FOR ENDOSCOPY PROCEDURE. WE WILL CONTINUE TO HAVE PHYSICAL THERAPY AMBULATE AND EXERCISE PATIENT. WE PLAN TO DISCONTINUE SHINE CATHETER TODAY. OTHERWISE, WE WILL FOLLOW UP WITH AM LABS AND CONTINUE TO MONTIOR PATIENT. - Past Medical Family Social History Past Med/Fam/Surg Hx: No changes since H&P Allergies: Allergies benzonatate [From Tessalon Perles] Allergy (Verified 05/24/17 16:50) meperidine [From Demerol] Allergy (Verified 05/24/17 16:50) Penicillins Allergy (Verified 05/24/17 17:37) rofecoxib [From Vioxx] Allergy (Verified 05/24/17 16:50) WATER PILLS Allergy (Uncoded 05/24/17 19:00) - Review of Systems ROS: No change since H&P - Vital Signs and I&O's Vital Signs: Temperature 98.7 F Pulse Rate [Left Brachial] 109 Pulse Rate [Right Brachial] 74 Pulse Rate 109 Respiratory Rate 18 Blood Pressure [Left Arm] 110/66 Blood Pressure [Right Arm] 112/59 O2 Sat by Pulse Oximetry 93 Intake and Output: Intake & Output 06/04/17 06/05/17 06/06/17 06/07/17 11:59 11:59 11:59 11:59 Intake Total 2750 3682 2695 800 Output Total 5445 4300 1190 0870 [id number] [phone] - Physical Exam Oriented: Normal Eyes: Normal Ear: Normal Nose: Normal Throat: Normal Respiratory: Normal Cardiovascular: Normal : Normal Auscultation: Bowel Sounds: Normal Palpation: Normal Tenderness: Diffuse, Mild. negative: Rebound, Guarding, Rigidity Skin: Normal Musculoskeletal: Normal Psychiatric: Normal Mood Description: Calm Affect: Normal Speech Pattern: Clear, Appropriate - Laboratory and Diagnostics Result Diagrams: 06/06/17 04:35 06/06/17 04:35 Labs: 05/24/17 17:55 Blood Blood Culture - Final 05/24/17 18:00 Blood Blood Culture - Final 05/24/17 18:23 Sputum - Expectorated Sputum Sputum Culture - Final 05/24/17 18:23 Sputum - Expectorated Sputum - Final Laboratory WBC 5.8 X10^3/uL (3.6-10.0) 06/06/17 04:35 RBC 4.10 X10^6/uL (3.5-5.4) 06/06/17 04:35 Hgb 13.1 g/dL (12.0-16.0) 06/06/17 04:35 Hct 37.6 % (36.0-47.0) 06/06/17 04:35 MCV 91.8 fL (80.0-100.0) 06/06/17 04:35 MCH 31.9 pg (27.0-34.0) 06/06/17 04:35 MCHC 34.7 g/dL (33.0-35.0) 06/06/17 04:35 RDW 13.6 % (11.6-16.5) 06/06/17 04:35 Plt Count 140 X10^3/uL (150.0-450.0) L 06/06/17 04:35 Plt Count Comment Adequate (ADEQUATE) 05/30/17 04:55 MPV 6.8 fL (7.4-11.0) L 06/06/17 04:35 Neut % 68.6 % (42.0-75.0) 06/06/17 04:35 Lymph % 15.1 % (21.0-51.0) L 06/06/17 04:35 Ponce % 14.4 % (0.0-13.0) H 06/06/17 04:35 Eos % 1.3 % (0.9-2.9) 06/06/17 04:35 Baso % 0.6 % (0.2-1.0) 06/06/17 04:35 Neut # 4.0 x10^3/uL (2.2-4.8) 06/06/17 04:35 Lymph # 0.9 X10^3/uL (1.3-2.9) L 06/06/17 04:35 Ponce # 0.8 x10^3/uL (0.3-0.8) 06/06/17 04:35 Eos # 0.1 x10^3/uL (0.0-0.2) 06/06/17 04:35 Baso # 0.0 X10^3/uL (0.0-0.1) 06/06/17 04:35 Absolute Nucleated RBC 0.1 /100WBC 06/06/17 04:35 Total Counted 100 05/30/17 04:55 Neutrophils % (Manual) 66 % (39-76) 05/30/17 04:55 Band Neutrophils % 2 % (0-10) 05/30/17 04:55 Lymphocytes % (Manual) 26 % (13-43) 05/30/17 04:55 Monocytes % (Manual) 6 % (4-9) 05/30/17 04:55 Plt Morphology Comment Normal (NORMAL) 05/30/17 04:55 RBC Morphology Normal (NORMAL) 05/30/17 04:55 Sample Site Lra 05/24/17 19:15 ABG pH 7.480 (7.35-7.45) H 05/24/17 19:15 ABG pCO2 40.0 mmHg (35.0-45.0) 05/24/17 19:15 ABG pO2 64.0 mmHg (80.0-100.0) L 05/24/17 19:15 ABG HCO3 29.8 mmol/L (22-26) H 05/24/17 19:15 ABG O2 Saturation 94.0 % (90-100) 05/24/17 19:15 ABG Base Excess 5.8 mmol/L (-2.0-2.0) H 01/24/18 19:15 Jake Test Pos 05/24/17 19:15 A-a Gradient 86.0 mmHg 05/24/17 19:15 FiO2 28.000 05/24/17 19:15 Blood Gas Comments Belkys well mm 05/24/17 19:15 Sodium 133 mmol/L (136-145) L 06/06/17 04:35 Corrected Sodium TNP 06/06/17 04:35 Potassium 4.0 mmol/L (3.5-5.1) 06/06/17 04:35 Chloride 101 mmol/L (98-107) 06/06/17 04:35 Carbon Dioxide 26.2 mmol/L (21-32) 06/06/17 04:35 BUN 6 mg/dL (7-18) L 06/06/17 04:35 Creatinine 0.48 mg/dL (0.55-1.02) L 06/06/17 04:35 Est GFR (MDRD) Af Amer > 60 (>60) 06/06/17 04:35 Est GFR (MDRD) Non-Af > 60 (>60) 06/06/17 04:35 Glucose 98 mg/dL (65-99) 06/06/17 04:35 Calcium 8.0 mg/dL (8.5-10.1) L 06/06/17 04:35 Corrected Calcium 9.1 mg/dL (8.5-10.1) 06/06/17 04:35 Total Bilirubin 0.70 mg/dL (0.2-1.0) 06/06/17 04:35 AST 17 Units/L (15-37) 06/06/17 04:35 ALT 22 Units/L (12-78) 06/06/17 04:35 Alkaline Phosphatase 44 Units/L (46-116) L 06/06/17 04:35 B-Natriuretic Peptide 239 pg/mL (0-79) H 05/24/17 18:00 Total Protein 5.4 g/dL (6.4-8.2) L 06/06/17 04:35 Albumin 2.6 g/dL (3.4-5.0) L 06/06/17 04:35 Globulin 2.8 g/dL (2.5-4.5) 06/06/17 04:35 Albumin/Globulin Ratio 0.9 Ratio (1.1-2.1) L 06/06/17 04:35 Specimen Type Catherized urine 06/02/17 17:46 Urine Color Yellow (YELLOW) 06/02/17 17:46 Urine Appearance Clear (CLEAR) 06/02/17 17:46 Urine pH 7.0 (5.0 - 8.0) 06/02/17 17:46 Ur Specific Hawks 1.010 (1.000-1.030) 06/02/17 17:46 Urine Protein Negative (NEGATIVE) 06/02/17 17:46 Urine Glucose (UA) Negative (NEGATIVE) 06/02/17 17:46 Urine Ketones Negative (NEGATIVE) 06/02/17 17:46 Urine Occult Blood Negative (NEGATIVE) 06/02/17 17:46 Urine Nitrite Negative (NEGATIVE) 06/02/17 17:46 Urine Bilirubin Negative (NEGATIVE) 06/02/17 17:46 Urine Urobilinogen Normal (NORMAL) 06/02/17 17:46 Ur Leukocyte Esterase Negative (NEGATIVE) 06/02/17 17:46 Urine RBC None seen /HPF (NEGATIVE) 06/02/17 17:46 Urine WBC Rare /HPF (NEGATIVE) 06/02/17 17:46 Ur Squamous Epith Cells Few /HPF (NEGATIVE) 06/02/17 17:46 Amorphous Sediment Trace /HPF (NEGATIVE) 06/02/17 17:46 Urine Bacteria Negative /HPF (NEGATIVE) 06/02/17 17:46 Ur Culture Indicated? No/not indicated 06/02/17 17:46 Influenza Type A (PCR) Positive (NEGATIVE) A 05/24/17 18:56 Influenza Type B (PCR) Negative (NEGATIVE) 05/24/17 18:56 Tissue Pathology To follow 06/06/17 14:45 - Plan (1) Hyponatremia Status: Acute Plan: SALT TABS Q3H, NORMAL SALINE AT 100ML/HR, CONTINUE TO MONITOR (2) Generalized weakness Status: Acute Plan: CONTINUE PHYSICAL THERAPY, CONTINUE TO MONITOR (3) Abdominal pain Status: Acute Qualifiers: Abdominal location: generalized Qualified Code(s): R10.84 - Generalized abdominal pain Plan: EGD TOMORROW, CONTINUE BOWEL REGIMEN, CONTINUE TO MONITOR (4) Constipation Status: Resolved Qualifiers: Constipation type: slow transit constipation Qualified Code(s): K59.01 - Slow transit constipation Plan: COLACE 100MG BID, MILK OF MAGNESIA 15ML QID, MIRALAX DAILY, CONTINUE TO MONITOR (5) Bronchopneumonia Status: Resolved Plan: SUPPLEMENTAL OXYGEN, CONTINUE TO MONITOR (6) Influenza Status: Resolved Plan: CONTINUE TO MONITOR
[2017-06-06] MEDS: CORTISPORIN OTIC SUSP LEFT EAR SCH (23:35)
[2017-06-07 02:44] LABS: BILIRUBIN,URINE NEGATIVE (NEGATIVE); BLOOD/HEMOGLOBIN,URINE 2+ (NEGATIVE); GLUCOSE, URINE NEGATIVE (NEGATIVE); KETONES,URINE 3+ (NEGATIVE); LEUKOCYTE ESTERASE ,URINE 1+ (NEGATIVE); NITRITES,URINE POSITIVE (NEGATIVE); PROTEIN,URINE NEGATIVE (NEGATIVE); UROBILINOGEN,URINE NORMAL (NORMAL)
[2017-06-07] MEDS: THERMOTABS PO SCH ×5 (02:52→15:58)
[2017-06-07 02:53] LABS: APPEARANCE,URINE SLIGHTLY HAZY (CLEAR); BACTERIA,URINE TRACE /HPF (NEGATIVE); COLOR,URINE YELLOW (YELLOW); MUCUS,URINE MANY /HPF (NEGATIVE); SQUAMOUS EPITHELIAL CELL,UR MANY /HPF (NEGATIVE)
[2017-06-07] MEDS: BUTT CREAM (COMPOUND) TOP PRN (02:53)
[2017-06-07] MEDS: NS 1000 ML 1,000 ML IV SCH (02:54)
[2017-06-07] MEDS: MAALOX or MYLANTA PO SCH ×5 (03:56→15:57)
[2017-06-07 06:14] LABS: BASOPHILS % (AUTO) 0.6 % (0.2-1.0); EOSINOPHILS # (AUTO) 0.1 x10^3/uL (0.0-0.2); EOSINOPHILS % (AUTO) 1.5 % (0.9-2.9); HEMATOCRIT 36.9 % (36.0-47.0); LYMPHOCYTES # (AUTO) 0.8 X10^3/uL (1.3-2.9); MEAN CORPUSCULAR HEMOGLOBIN 32.1 pg (27.0-34.0); MEAN CORPUSCULAR HGB CONC 35.2 g/dL (33.0-35.0); MEAN CORPUSCULAR VOLUME 91.4 fL (80.0-100.0); MONOCYTES # (AUTO) 0.7 x10^3/uL (0.3-0.8); MONOCYTES % (AUTO) 13.3 % (0.0-13.0); NEUTROPHILS # (AUTO) 3.5 x10^3/uL (2.2-4.8); NEUTROPHILS % (AUTO) 69.6 % (42.0-75.0); PLATELET COUNT 134 X10^3/uL (150.0-450.0); RED BLOOD COUNT 4.03 X10^6/uL (3.5-5.4); RED CELL DISTRIBUTION WIDTH 13.7 % (11.6-16.5); WHITE BLOOD COUNT 5.1 X10^3/uL (3.6-10.0)
[2017-06-07 06:22] LABS: ALANINE AMINOTRANSFERASE 25 Units/L (12-78); ALBUMIN 2.6 g/dL (3.4-5.0); ALKALINE PHOSPHATASE 45 Units/L (46-116); ASPARTATE AMINO TRANSFERASE 21 Units/L (15-37); BLOOD UREA NITROGEN 8 mg/dL (7-18); CARBON DIOXIDE 26.1 mmol/L (21-32); CHLORIDE 103 mmol/L (98-107); COR CA(FOR HYPOALB) 9.1 mg/dL (8.5-10.1); CREATININE 0.57 mg/dL (0.55-1.02); SODIUM 134 mmol/L (136-145); TOTAL PROTEIN 5.5 g/dL (6.4-8.2); eGFR BLACK RACES > 60 (>60); eGFR NON BLACK RACES > 60 (>60)
[2017-06-07] MEDS: PROTONIX INJ 40 MG VIAL IVP SCH (09:23)
[2017-06-07] MEDS: LEVSIN/MAALOX/LIDOC VISC PO SCH ×2 (09:23→15:57)
[2017-06-07] MEDS: PEPCID 20 MG IV PREMIX* 20 MG/50 ML BAG IV SCH (09:24)
[2017-06-07] MEDS: MIRALAX POWDER (1 DOSE 17GM) PO SCH (09:24)
[2017-06-07] MEDS: COLACE CAP 100 MG PO SCH (09:26)
[2017-06-07] MEDS: CORTISPORIN OTIC SUSP LEFT EAR SCH ×3 (09:26→15:58)
[2017-06-07] MEDS: MEGACE PO SCH (09:26)
[2017-06-07 11:10] LABS: BILIRUBIN,URINE NEGATIVE (NEGATIVE); BLOOD/HEMOGLOBIN,URINE 1+ (NEGATIVE); GLUCOSE, URINE NEGATIVE (NEGATIVE); KETONES,URINE 3+ (NEGATIVE); LEUKOCYTE ESTERASE ,URINE 3+ (NEGATIVE); NITRITES,URINE NEGATIVE (NEGATIVE); PROTEIN,URINE NEGATIVE (NEGATIVE); UROBILINOGEN,URINE NORMAL (NORMAL)
[2017-06-07 11:43] LABS: APPEARANCE,URINE SLIGHTLY HAZY (CLEAR); BACTERIA,URINE TRACE /HPF (NEGATIVE); COLOR,URINE YELLOW (YELLOW); SQUAMOUS EPITHELIAL CELL,UR FEW /HPF (NEGATIVE)
[2017-06-07 12:14] VITALS: BP 134/64
== END 2017-06-07 16:20 | DRG 194 ==
LOC: MED/SURG 16:20
PROVIDERS: ADMIT Internal Medicine; ATTEND Internal Medicine
PROC: 0DB68ZX Excision of Stomach, Via Natural or Artificial Opening Endoscopic, Diagnostic (ICD-10-PCS; 2017-06-06)
PROC: 0D757ZZ Dilation of Esophagus, Via Natural or Artificial Opening (ICD-10-PCS; 2017-06-06)
PROC: 0DB58ZX Excision of Esophagus, Via Natural or Artificial Opening Endoscopic, Diagnostic (ICD-10-PCS; principal; 2017-06-06 13:30)
DX: J10.1 Influenza due to other identified influenza virus with other respiratory manifestations (principal); J18.0 Bronchopneumonia, unspecified organism; E87.1 Hypo-osmolality and hyponatremia; R53.83 Other fatigue; R06.02 Shortness of breath; I51.7 Cardiomegaly; K59.01 Slow transit constipation; R26.89 Other abnormalities of gait and mobility; R10.84 Generalized abdominal pain; R13.11 Dysphagia, oral phase; R10.13 Epigastric pain; R19.07 Generalized intra-abdominal and pelvic swelling, mass and lump; K57.30 Diverticulosis of large intestine without perforation or abscess without bleeding; K44.9 Diaphragmatic hernia without obstruction or gangrene; K21.9 Gastro-esophageal reflux disease without esophagitis; K22.8 Other specified diseases of esophagus; K22.2 Esophageal obstruction; K59.00 Constipation, unspecified
CPT/HCPCS: 36415; 36600; 71045; 74018; 74178; 76856; 80053; 81001; 82803; 83880; 85025; 86316; 87040; 87070; 87086; 87205; 87502; 93005; 93306; 93880; 94640; 94760; 97535; 99100; A4222; C9113; G9035; S0028; S0179; A4217; J0713; J1956; J2920; J3490; J7608; J7620